=== PATIENT | female | born 1980 | race Caucasian/White ===

== ENCOUNTER 2019-10-31 18:47 | Observation (INO) | payer OTHER, SELFPAY ==
[2019-10-31] VITALS (10 sets, daily range): BP systolic 181–232; BP diastolic 91–129; PULSE 80–95; RESP 16–20; TEMP 36.8–37.4; O2SAT 98–100; BMI 34.2
--- NOTE | 2019-10-31 18:57 | DI.RAD.S_ITS ---
PROCEDURE: XR CHEST 1V INDICATIONS: chest pain TECHNIQUE: One view of the chest was acquired. COMPARISON: None. FINDINGS: Surgical changes and devices: None. Lungs and pleura: Lungs are clear. No pleural effusions or pneumothorax. Mediastinum: Mediastinal contours appear normal. Heart size is normal. Bones and chest wall: No suspicious bony lesions. Overlying soft tissues appear unremarkable. IMPRESSION: No acute cardiopulmonary abnormality. Dictated by: Shaw Díaz M.D. on 10/31/2019 at 19:53 Approved by: Shaw Díaz M.D. on 10/31/2019 at 19:53
[2019-10-31 19:18] LABS: Add Manual Diff / Slide Review NO; Basophils Absolute Auto 0 /uL (0-100); Basophils Percent Auto 0.6 % (0-2); Eosinophils Absolute Auto 100 /uL (0-450); Hematocrit 34.7 % (36-46); Hemoglobin 11.2 g/dL (12.0-16.0); Lymphocytes Absolute Auto 2400 /uL (1100-4500); Lymphocytes Percent Auto 31.4 % (25-40); Mean Corpuscular HGB Conc 32.3 % (30-36); Mean Corpuscular Hemoglobin 26.1 PG (26-34); Mean Corpuscular Volume 80.9 fL (80-100); Monocytes Absolute Auto 600 /uL (0-900); Monocytes Percent Auto 8.2 % (3-14); Neutrophils Absolute Auto 4400 /uL (1500-7000); Neutrophils Percent Auto 57.8 % (50-75); Platelet Count 267 X10^3/uL (150-400); Red Blood Cell Count 4.29 X10^6/uL (4.0-5.2); Red Cell Distribution Width 16.1 % (11.6-14.8); White Blood Cell Count 7.6 X10^3/uL (4.5-11.0)
[2019-10-31 19:29] LABS: Alanine Aminotransferase 14 IU/L (<35); Albumin 4.4 g/dL (3.5-5.0); Albumin Globulin Ratio 1.4 (1.0-2.8); Alkaline Phosphatase 80 U/L (38-126); Aspartate Aminotransferase 26 IU/L (14-36); Bilirubin Total 0.2 mg/dL (0.2-1.3); Blood Urea Nitrogen 12 mg/dL (7-17); Carbon Dioxide 24 mmol/L (22-32); Chloride 107 mmol/L (98-107); Creatine Kinase 41 U/L (30-135); Estimated Glomerular Filt Rate > 60.0 mL/min (>60); Globulin 3.1 g/dL (1.7-4.1); Glucose 114 mg/dL (70-100); HEMOLYSIS 41 (0-50); Lipase 73 U/L (23-300); Potassium 4.4 mmol/L (3.4-5.1); Sodium 139 mmol/L (137-145); Total Protein 7.5 g/dL (6.3-8.2)
[2019-10-31 19:41] LABS: NT-proBNP (BNP-Adult 18+) 78 pg/mL (<125); Troponin I < 0.012 ng/mL (0.01-0.034)
--- NOTE | 2019-10-31 19:50 | ED.CHESTPAIN ---
HPI - Chest Pain General Chief Complaint: Chest Pain Stated Complaint: chest pain Time Seen by Provider: 10/31/19 18:47 Source: patient Mode of arrival: Ambulatory Limitations: no limitations History of Present Illness HPI narrative: 39-year-old female nonsmoker without any significant medical history presents with a chief complaint of retrosternal chest pressure which has been present for most of the week. She states she thinks it gets worse with some exertion and improves slightly when she rests. She denies any radiation of her pain and rates it at a 5/10 and pressure like. She has associated shortness of breath but denies any significant weakness, nausea, vomiting. She has had no fever or chills. She denies recent travel or exposure to persons known to have COVID-19. She denies any abdominal pain nor nausea, vomiting or diarrhea. She denies any dysuria, frequency or urgency. She denies any history of the same. Related Data Home Medications Medication Instructions Recorded Confirmed Lactobacillus acidophilus 1 tab PO QDAY #0 tab 03/04/16 [cranberry] #0 03/04/16 multivitamin [Multiple Vitamins] 1 tab PO QDAY #0 tab 03/04/16 VITAMIN D (Vitamin D2) #0 05/16/16 Allergies Allergy/AdvReac Type Severity Reaction Status Date / Time No Known Drug Allergies Allergy Verified 10/31/19 20:00 Review of Systems Constitutional Constitutional: Denies chills, Denies fatigue, Denies fever(s), Denies frequent falls, Denies lethargy and Denies weakness Eyes Eyes: Denies change in vision, Denies eye discharge, Denies irritation and Denies loss of vision ENT Ears, Nose, Mouth, and Throat: Denies change in voice, Denies dizziness, Denies neck pain, Denies sore throat and Denies throat swelling Cardiovascular Cardiovascular: Reports chest pain, Reports chest pain with activity, Denies irregular heart rhythm, Denies lightheadedness, Denies palpitations, Reports dyspnea, Denies dyspnea on exertion and Denies orthopnea Respiratory Respiratory: Denies cough, Reports dyspnea, Denies dyspnea on exertion and Denies wheezing Gastrointestinal Gastrointestinal: Denies abdominal pain, Denies change in bowel habits, Denies diarrhea, Denies nausea and Denies vomiting Genitourinary Genitourinary: Denies hematuria, Denies flank pain, Denies urinary incontinence and Denies urinary urgency Musculoskeletal Musculoskeletal: Denies back pain, Denies muscle weakness, Denies neck pain, Denies numbness and Denies tingling Integumentary/Breasts Skin/Breast: Denies pruritus, Denies erythema, Denies rash and Denies wounds Neurologic Neurologic: Denies behavioral changes, Denies confusion, Denies dizziness, Denies frequent falls, Denies loss of vision, Denies numbness, Denies tingling and Denies weakness Psychiatric Psychiatric: Denies anxiety, Denies behavioral changes, Denies confusion, Denies depression, Denies homicidal ideation and Denies suicidal ideation Endocrine Endocrine: Denies fatigue, Denies flushing and Denies palpitations Hematologic/Lymphatic Hematologic/Lymphatic: Denies easy bruising Allergic/Immunologic Allergic/Immunologic: Denies urticaria, Denies throat swelling and Denies wheezing Patient History Surgical History History of third molar tooth extraction Status post knee surgery Status post knee surgery Family History Father Age: 73 Prostate cancer Mother Age: 63 Hypertension Social History Smoking Status: Never smoker Smoking Status: Never smoker alcohol intake frequency: holidays/special occasions only Substance Use Type: does not use Exam Narrative Exam Narrative: GENERAL: [39] year old patient appears stated age. Well-nourished, well-developed patient, in mild distress. HEAD: Atraumatic. Normocephalic. EYES: Pupils equal round and reactive. Extraocular motions intact. No scleral icterus. No injection or drainage. ENT: Nose without bleeding, purulent drainage. Throat without erythema, tonsillar hypertrophy or exudate. Airway patent. NECK: Trachea midline. Non tender CARDIOVASCULAR: Regular rate and rhythm without murmurs, gallops, or rubs. RESPIRATORY: Clear to auscultation. Breath sounds equal bilaterally. No wheezes, rales, or rhonchi. GASTROINTESTINAL: Abdomen soft, non-tender, nondistended. EXTREMITIES: No edema or joint tenderness. BACK: Nontender without deformity or crepitance. No flank tenderness. NEURO: AOx3. SKIN: No rash or erythema of visible areas Initial Vital Signs Initial Vital Signs: Vital Signs Temperature 98.3 F 10/31/19 18:58 Pulse Rate 87 10/31/19 18:58 Respiratory Rate 16 10/31/19 18:58 Blood Pressure 232/129 H 10/31/19 18:58 Pulse Oximetry 99 10/31/19 18:58 Course Orders Ordered: ED Orders 10/31/19 18:57 XR chest 1V Stat EKG-12 Lead Stat 10/31/19 19:05 Complete Blood Count AUTO DIFF Stat Comprehensive Metabolic Panel Stat D Dimer Stat Lipase Stat NT-proBNP (BNP-Adult 18+) Stat Troponin & CK Cardiac Panel Stat 10/31/19 21:40 Troponin I Stat Sodium Chloride (Normal Saline 0.9%) 1,000 mls @ 150 mls/hr IV CONT PATIENCE Last Admin: 10/31/19 20:04 Dose: 150 mls/hr Documented by: [email or web address] MIGUELE Nicardipine HCl 25 mg/ Sodium (Chloride) 250 mls @ 50 mls/hr IV TITRATE PATIENCE; Protocol Discontinued Medications Aspirin (Aspirin Chew) 324 mg PO NOW ONE Stop: 10/31/19 18:58 Last Admin: 10/31/19 20:02 Dose: 324 mg Documented by: [email or web address] MIGUELE Labetalol HCl (Trandate) 10 mg IV NOW ONE Stop: 10/31/19 18:58 Last Admin: 10/31/19 20:10 Dose: 10 mg Documented by: CTR.[email or web address] Labetalol HCl (Trandate) 10 mg IV NOW ONE Stop: 10/31/19 19:18 Nitroglycerin (Nitrostat) 0.4 mg SL NOW ONE Stop: 10/31/19 20:56 Last Admin: 10/31/19 21:14 Dose: 0.4 mg Documented by: [email or web address] Reevaluation(s) Reevaluation #1: minimal improvement in BP with Labetalol. No change in symptoms Reevaluation #2: no change in BP or symptoms with NG Consultations Consultation #1: call to hospitalist for admission. Happy to accept Vital Signs Vital signs: Vital Signs - 8 hr 10/31/19 18:58 10/31/19 19:05 10/31/19 19:46 Temperature 98.3 F Pulse Rate 87 80 80 Respiratory Rate 16 19 16 Blood Pressure 232/129 H Blood Pressure [Right Arm] 213/122 H 219/103 H Pulse Oximetry 99 98 100 04/30/20 20:10 10/31/19 20:30 10/31/19 21:14 Temperature Pulse Rate 80 88 86 Respiratory Rate 16 Blood Pressure 228/104 H 201/104 H Blood Pressure [Right Arm] 206/106 H Pulse Oximetry 98 10/31/19 21:24 Temperature Pulse Rate 88 Respiratory Rate 20 Blood Pressure Blood Pressure [Right Arm] 201/101 H Pulse Oximetry 98 MDM - Chest Pain Lab Data Result diagrams: 10/31/19 19:05 10/31/19 19:05 Labs: Lab Results 10/31/19 10/31/19 10/31/19 Range/Units 19:05 19:05 19:05 WBC 7.6 (4.5-11.0) X10^3/uL RBC 4.29 (4.0-5.2) X10^6/uL Hgb 11.2 L (12.0-16.0) g/dL Hct 34.7 L (36-46) % MCV 80.9 (80-100) fL MCH 26.1 (26-34) PG MCHC 32.3 (30-36) % RDW 16.1 H (11.6-14.8) % Plt Count 267 (150-400) X10^3/uL Neut % (Auto) 57.8 (50-75) % Lymph % (Auto) 31.4 (25-40) % [place] % (Auto) 8.2 (3-14) % Eos % (Auto) 2.0 (2-4) % Baso % (Auto) 0.6 (0-2) % Neut # (Auto) 4400 (3113-7057) /uL Lymph # (Auto) 2400 (6452-7179) /uL [place] # (Auto) 600 (0-900) /uL Eos # (Auto) 100 (0-450) /uL Baso # (Auto) 0 (0-100) /uL D-Dimer < 230 (<230) ng/mL Sodium 139 (137-145) mmol/L Potassium 4.4 (3.4-5.1) mmol/L Chloride 107 (98-107) mmol/L Carbon Dioxide 24 (22-32) mmol/L BUN 12 (7-17) mg/dL Creatinine 0.60 (0.52-1.04) mg/dL Estimated GFR > 60.0 (>60) mL/min BUN/Creatinine Ratio 20.0 (6-22) Glucose 114 H (70-100) mg/dL Calcium 9.0 (8.4-10.2) mg/dL Total Bilirubin 0.2 (0.2-1.3) mg/dL AST 26 (14-36) IU/L ALT 14 (<35) IU/L Alkaline Phosphatase 80 (38-126) U/L Total Creatine Kinase 41 (30-135) U/L CK-MB (CK-2) TNP CK-MB (CK-2) Rel Index TNP Troponin I < 0.012 (0.01-0.034) ng/mL NT-Pro-B Natriuret Pep 78 (<125) pg/mL Total Protein 7.5 (6.3-8.2) g/dL Albumin 4.4 (3.5-5.0) g/dL Globulin 3.1 (1.7-4.1) g/dL Albumin/Globulin Ratio 1.4 (1.0-2.8) Lipase 73 (23-300) U/L MDM Narrative Medical decision making narrative: Cardiac ischemia considered, but thought less likely given non-ischemic EKG, normal troponin. PE considered, but thought less likely given normal DDimer. HTN emergency considered to be most likely cause of ongoing discomfort and SOB. Labetalol and NG did little to help, Nicardipine drip ordered. Patient and have had questions answered to their apparent satisfaction and are aware and in complete agreement with the plan to admit Discharge Plan Departure Patient Disposition: Admitted as Observation Clinical Impression: Hypertension Qualifiers: Hypertension type: unspecified Qualified Code(s): I10 - Essential (primary) hypertension Chest pain Qualifiers: Chest pain type: unspecified Qualified Code(s): R07.9 - Chest pain, unspecified Discharge Date/Time: 10/31/19 22:00 Admit Date/Time: 10/31/19 22:03 Admit Provider: Mich Turpin
[2019-10-31] MEDS: ASPIRIN 81 MG CHEW TAB 324 MG PO (20:02)
[2019-10-31] MEDS: SODIUM CHLORIDE 0.9% 1,000 ML 150 ML IV (20:04)
[2019-10-31] MEDS: LABETALOL 20 MG/4 ML SYRINGE 10 MG IV (20:10)
[2019-10-31] MEDS: NITROGLYCERIN 0.4 MG SL TAB SL (21:14)
[2019-10-31 21:51] LABS: D Dimer < 230 ng/mL (<230)
[2019-10-31 22:13] LABS: Troponin I < 0.012 ng/mL (0.01-0.034)
[2019-10-31 22:38] LABS: Bacteria Urine Occasional (0-1); Culture Indicated Urine Specimen Cultured; RBC Urine 30-100/HPF (0-5/HPF); Squamous Epithelial Cell Urine 0-1 /HPF (0-5/HPF); WBC Urine 0-1/HPF (0-5/HPF)
[2019-10-31] MEDS: NICARDIPINE 25 MG in SODIUM CHLORIDE 0.9% 240 ML 50 ML IV (22:50)
[2019-11-01] VITALS (31 sets, daily range): BP systolic 132–189; BP diastolic 70–102; PULSE 68–95; RESP 14–18; TEMP 36.4–37.8; O2SAT 94–100
--- NOTE | 2019-11-01 00:41 | PC.ADMIT ---
Addendum entered by Lexi Dai R.N. 11/01/19 05:40: BP up to 182/90. Nicardipine GTT restarted at 2.5 mg/hour per GLENIS Holley. Addendum entered by Lexi Dai R.N. 11/01/19 05:23: Inverted T waves noted in multiple leads. EKG obtained with non-specific changes, Manjinder GALVIN aware. Next set of cardiac enzymes negative, patient asymptomatic. Last BP 166/96 - PO metoprolol dose given per provider. Addendum entered by Lexi Dai R.N. 11/01/19 02:19: BP trending down below preferred parameters of SBP 160-170. Last 139/74 - Nicardipine GTT turned off. GLENIS Holley made aware. Current plan to hold GTT and PO metoprolol. Continue to check BP frequently every 30-60 min and reassess around 0500. Original Note: [email or web address] [facility] Admission Note: The patient,Lilly Paiz,39 y/o, was given written information regarding hospital policies, unit procedures and contact persons. Patient's smoking status: Never smoker. Vital Signs - 8 hr 10/31/19 18:58 10/31/19 19:05 10/31/19 19:46 Temperature 98.3 F Pulse Rate 87 80 80 Respiratory Rate 16 19 16 Blood Pressure 232/129 H Blood Pressure [Right Arm] 213/122 H 219/103 H Pulse Oximetry 99 98 100 10/31/19 20:10 10/31/19 20:30 10/31/19 21:14 Temperature Pulse Rate 80 88 86 Respiratory Rate 16 Blood Pressure 228/104 H 201/104 H Blood Pressure [Right Arm] 206/106 H Pulse Oximetry 98 10/31/19 21:24 10/31/19 22:18 10/31/19 23:01 Temperature Pulse Rate 88 87 83 Respiratory Rate 20 20 16 Blood Pressure Blood Pressure [Right Arm] 201/101 H 202/98 H 183/97 H Pulse Oximetry 98 98 98 10/31/19 23:53 11/01/19 00:25 Temperature 99.3 F Pulse Rate 95 H 92 H Respiratory Rate 18 16 Blood Pressure 181/91 H 164/89 H Blood Pressure [Right Arm] Pulse Oximetry 98 97 Arrived via stretcher in NAD. Nicardipine GTT per protocol at 5 mg/hour. Denies CP/SOB. SBP 160-180. GLENIS Holley at bedside for admit. Goal SBP 160-170. Up to BR SBA, steady gait. Sp02 98% RA. Oriented to room, call light and plan of care. Verbalized understanding.
--- NOTE | 2019-11-01 01:26 | P.HP_ITS ---
History of Present Illness History of Present Illness Date Patient Seen: 11/01/19 Time Patient Seen: 00:38 Chief complaint: chest pain Narrative: Ms. Lilyl Paiz is a 39-year-old nonsmoker female with no significant medical history who presents to the ER with chest pain. The patient reports developing chest pain approximately 5 days ago. 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 Describes the pain as substernal, pressure-like in character, 5/10 in intensity and nonradiating. She had associated headache as well as shortness of breath. She had not had pain like this before and the pain was worse with activity and relieved with rest. She presented to the ER for evaluation because the persistence of the pain. The patient does have a family history of hypertension as well as her grandmother passing away following multiple strokes. She takes no routine home medications and has a primary care provider home she has not seen in 2-3 years. Patient denies recent illness, fevers or chills a or e xposure to COVID-19. She has had the sub sternal chest pain as described above but denies palpitations, lightheadedness, dizziness or visual changes. She has had no nasal congestion or sore throat. She has no difficulty chewing or swallowing. She has had no cough or wheezing denies abdominal pain, heartburn, nausea or vomiting. She is currently on her menses that started Monday. She has had no changes in bowel habits and denies urinary symptoms. She reports no numbness and tingling of the extremities or gait disturbance. She is independent in all ADLs. No upon arrival to the ER the patient's temperature 98? 0.3, heart rate of 87, blood pressure 232 over 129, respirations of 16 saturating 99% on room air. A chest x-rays taken finding no acute changes and normal heart size. Twelve lead EKG 5 is obtained finding sinus rhythm with a ventricular rate of 74, left and Luda fascicular block, no ectopy no ischemic changes or infarct. On laboratory analysis the patient has white count of 7.6, hemoglobin 11.2, hematocrit of 34.7 and platelets of 267. Her electrolytes are all within normal limits and she has a BUN of 12 and a creatinine of 0.60. Her nonfasting glucose is 114. Her liver functions are all within normal range has 0 2 minutes of 4.4. Total CK is 41 and her troponin is less than 0.012 x 2, BNP is 48 and a D-dimer is less than 230. The patient's administered labetalol in the emergency department which was not efficacious and started on nicardipine infusion. The patient is admitted to the intensive care unit under the medicine service for hypertensive urgency. Patient History Medical History (Updated 11/01/19 @ 01:39 by GLENIS Flaherty) No significant medical problems (Acute) Surgical History (Updated 11/01/19 @ 01:39 by GLENIS Flaherty) History of third molar tooth extraction Status post knee surgery Family & Social History Family History (Updated 11/01/19 @ 01:40 by GLENIS Flaherty) Father Age: 73 Prostate cancer Mother Age: 63 Hypertension Sister Thyroid disease Grandmother Stroke Social History: household members spouse Safety & Behavioral: Feels Safe in Current Yes Environment Been Physically Hurt or No Threatened By a Person Suicidal Ideation Description None Tobacco & Substance use: Smoking Status Never smoker alcohol intake frequency holiday/special occasion Substance Use Type does not use Comment: The patient lives in a single family home with her to whom she has been for 20 years. 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 Smoking: The patient has never used tobacco products. Alcohol: Patient endorses drinking 2 drinks per month. Substance use: Patient denies recreational pharmaceuticals, herbal or cannabis products. Advanced directives: Patient does not have advanced directives in direct conversation states her desire to be FULL CODE. She designates her to be her surrogate decision maker. Meds Home Medications and Allergies Home Medications Medication Instructions Recorded Confirmed Type Lactobacillus acidophilus 1 tab PO QDAY #0 tab 03/04/16 10/31/19 History multivitamin [Multiple Vitamins] 1 tab PO QDAY #0 tab 03/04/16 10/31/19 History cetirizine [Zyrtec] 10 mg PO DAILY 10/31/19 10/31/19 History magnesium chloride 500 mg PO DAILY 10/31/19 10/31/19 History Allergies Allergy/AdvReac Type Severity Reaction Status Date / Time No Known Drug Allergies Allergy Verified 10/31/19 20:00 Review of Systems Review of Systems ROS: Yes All systems reviewed with the patient and are negative except as otherwise documented Exam Vital Signs (past 8 hours): - 10/31/19 18:58 10/31/19 19:05 10/31/19 19:46 Temperature 98.3 F Pulse Rate 87 80 80 Respiratory Rate 16 19 16 Blood Pressure 232/129 H Blood Pressure [Right Arm] 213/122 H 219/103 H Pulse Oximetry 99 98 100 10/31/19 20:10 10/31/19 20:30 10/31/19 21:14 Temperature Pulse Rate 80 88 86 Respiratory Rate 16 Blood Pressure 228/104 H 201/104 H Blood Pressure [Right Arm] 206/106 H Pulse Oximetry 98 10/31/19 21:24 10/31/19 22:18 10/31/19 23:01 Temperature Pulse Rate 88 87 83 Respiratory Rate 20 20 16 Blood Pressure Blood Pressure [Right Arm] 201/101 H 202/98 H 183/97 H Pulse Oximetry 98 98 98 10/31/19 23:53 11/01/19 00:25 11/01/19 00:50 Temperature 99.3 F Pulse Rate 95 H 92 H 95 H Respiratory Rate 18 16 16 Blood Pressure 181/91 H 164/89 H 157/85 H Blood Pressure [Right Arm] Pulse Oximetry 98 97 98 Oxygen Delivery Method Room Air Oxygen Flow Rate 0 Narrative Exam Narrative: GENERAL APPEARANCE: well developed, obese female with a BMI of 34.2, in no acute distress. HEENT: Normocephalic, PERRLA, sclera anicteric, conjunctiva clear, EOMs intact without nystagmus, no sinus tenderness to percussion, no rhinorrhea, mucous membranes are moist and pink without lesions or exudate. NECK/THYROID: neck supple, no JVD, no carotid bruit, no thyromegaly, trachea midline. LYMPH NODES: no cervical or supraclavicular lymphadenopathy. SKIN: [place], warm and dry, no visible lesions, rashes, ulcerations or petechiae. HEART: regular rate and rhythm, S1-S2, 1/6 systolic murmur, no rubs or gallops, brisk capillary refill, trace edema LUNGS: clear to auscultation bilaterally, no coarseness crackles or wheezing, no cough present CHEST: Symmetrical movement, no accessory muscle use, good tidal volume. ABDOMEN: Soft, no distention, no abdominal tenderness, no guarding or peritone al signs, no organomegaly, no flank or suprapubic tenderness, active bowel tones. EXTREMITIES: moves all extremities, strength is 5/5, investigative agent are 5/5 symmetrical, no deformities or joint effusions. NEUROLOGIC: AAO x4, no focal neurologic deficits, cranial nerves II-XII grossly intact, sensation intact to light touch, hearing grossly normal to speech. PSYCH: Good judgment, good insight, linear thought process, cooperative, appropriate with stable behavior Objective Labs Result Diagrams: 10/31/19 19:05 10/31/19 19:05 Labs: Laboratory Results - last 24 hr 10/31/19 10/31/19 10/31/19 19:05 19:05 19:05 WBC 7.6 RBC 4.29 Hgb 11.2 L Hct 34.7 L MCV 80.9 MCH 26.1 MCHC 32.3 RDW 16.1 H Plt Count 267 Neut % (Auto) 57.8 Lymph % (Auto) 31.4 [place] % (Auto) 8.2 Eos % (Auto) 2.0 Baso % (Auto) 0.6 Neut # (Auto) 4400 Lymph # (Auto) 2400 [place] # (Auto) 600 Eos # (Auto) 100 Baso # (Auto) 0 D-Dimer < 230 Sodium 139 Potassium 4.4 Chloride 107 Carbon Dioxide 24 BUN 12 Creatinine 0.60 Estimated GFR > 60.0 BUN/Creatinine Ratio 20.0 Glucose 114 H Calcium 9.0 Total Bilirubin 0.2 AST 26 ALT 14 Alkaline Phosphatase 80 Total Creatine Kinase 41 CK-MB (CK-2) TNP CK-MB (CK-2) Rel Index TNP Troponin I < 0.012 NT-Pro-B Natriuret Pep 78 Total Protein 7.5 Albumin 4.4 Globulin 3.1 Albumin/Globulin Ratio 1.4 Lipase 73 Urine RBC Urine WBC Ur Squamous Epith Cells Urine Bacteria Ur Culture Indicated? 10/31/19 10/31/19 21:40 22:10 WBC RBC Hgb Hct MCV MCH MCHC RDW Plt Count Neut % (Auto) Lymph % (Auto) [place] % (Auto) Eos % (Auto) Baso % (Auto) Neut # (Auto) Lymph # (Auto) [place] # (Auto) Eos # (Auto) Baso # (Auto) D-Dimer Sodium Potassium Chloride Carbon Dioxide BUN Creatinine Estimated GFR BUN/Creatinine Ratio Glucose Calcium Total Bilirubin AST ALT Alkaline Phosphatase Total Creatine Kinase CK-MB (CK-2) CK-MB (CK-2) Rel Index Troponin I < 0.012 NT-Pro-B Natriuret Pep Total Protein Albumin Globulin Albumin/Globulin Ratio Lipase Urine RBC 30-100/hpf H Urine WBC 0-1/hpf Ur Squamous Epith Cells 0-1 /hpf Urine Bacteria Occasional (0-1) Ur Culture Indicated? Specimen cultured Assessment & Plan Assessment & Plan narrative: This is a 39-year-old female patient who presents to the ER with 5 days of chest pressure substernal nonradiating with associated nausea and shortness of breath. 1. Hypertensive urgency, present on admission, active. -On admission the patient is found to have elevated blood pressure 232/129 with no prior history of hypertension. -she has systemic symptoms of pressure-like substernal chest pain that is nonradiating with associated shortness of breath worsening with exertion. -12 lead EKG finds a sinus rhythm with ventricular rate of 74 without ectopy, le ft anterior fascicular block with no ischemia or infarct, chest x-ray finds no acute changes and normal heart size. Troponin is less than 0.012 x 2 BNP is 48, D-dimer is less than 230. -the patient was administered aspirin 324 mg, sublingual nitroglycerin 0.4 mg in the emergency department without affect and subsequent administration of labetalol 10 mg IV with minimal response. The patient is started on nicardipine infusion. -will continue night cardiac pain infusion and titrate to a pressure of 160-170. -ordered metoprolol 25 mg twice daily. -will obtain echocardiogram in the morning. -The patient states improvement with the above-mentioned therapies with improvement in headache and resolution of chest pain. EKG is sinus rhythm without ischemia or infarct, troponin is negative x2, Obtain metanephrines for possible pheochromocytoma. Less likely renal artery stenosis with a BUN of 14 and creatinine 0.60. Isolation: None VTE prophylaxis bilateral SCDs, chemical prophylaxis held related to severe hypertensive episode. IV fluid: Saline lock, nicardipine infusion. Diet: Heart healthy low-sodium. Code status: FULL CODE. The patient is admitted as an inpatient to the intensive care unit on a nicardipine infusion for hypertensive urgency requiring frequent monitoring and medication titration. COVID-19 COVID-19 status: Not tested Scores GCS Pilot coma scale eye opening: Spontaneous [place]ell coma scale verbal response: Orientated Pilot coma scale motor response: Obey commands [place] coma scale total score: 15 Quality VTE Deep Vein Thrombosis/Pulmonary Embolism Present on Admission: No
[2019-11-01 04:35] LABS: Add Manual Diff / Slide Review NO; Basophils Absolute Auto 0 /uL (0-100); Basophils Percent Auto 0.2 % (0-2); Eosinophils Absolute Auto 100 /uL (0-450); Eosinophils Percent Auto 1.1 % (2-4); Hematocrit 30.3 % (36-46); Hemoglobin 10.1 g/dL (12.0-16.0); Lymphocytes Absolute Auto 1900 /uL (1100-4500); Mean Corpuscular HGB Conc 33.4 % (30-36); Mean Corpuscular Hemoglobin 26.8 PG (26-34); Mean Corpuscular Volume 80.2 fL (80-100); Monocytes Absolute Auto 600 /uL (0-900); Monocytes Percent Auto 6.7 % (3-14); Neutrophils Absolute Auto 6000 /uL (1500-7000); Platelet Count 242 X10^3/uL (150-400); Red Blood Cell Count 3.78 X10^6/uL (4.0-5.2); Red Cell Distribution Width 16.2 % (11.6-14.8); White Blood Cell Count 8.6 X10^3/uL (4.5-11.0)
[2019-11-01 04:42] LABS: BUN Creatinine Ratio 14.9 (6-22); Blood Urea Nitrogen 7 mg/dL (7-17); Calcium 8.4 mg/dL (8.4-10.2); Carbon Dioxide 25 mmol/L (22-32); Chloride 108 mmol/L (98-107); Creatine Kinase 30 U/L (30-135); Estimated Glomerular Filt Rate > 60.0 mL/min (>60); Glucose 115 mg/dL (70-100); HEMOLYSIS 25 (0-50); Sodium 138 mmol/L (137-145)
[2019-11-01 04:54] LABS: Troponin I < 0.012 ng/mL (0.01-0.034)
[2019-11-01] MEDS: METOPROLOL IR 25 MG TABLET PO (05:11)
--- NOTE | 2019-11-01 08:00 | DI.NM.S_ITS ---
PROCEDURE: NM GALLITO PERF SPECT R&S PHARM Rest and pharmacological stress myocardial perfusion SPECT with gated imaging and ejection fraction RADIOPHARMACEUTICAL: 26.5 mCi Tc-99m tetrafosmin IV at rest and 21.6 mCi Tc-99m tetrafosmin IV at peak effect of pharmacological stress. Kjp-[id number] was performed. INDICATIONS: hypertensive urgency, EKG changes. TECHNIQUE: Radiopharmaceutical was injected at peak stress test, and also at rest. SPECT images were obtained. SPECT myocardial perfusion images were displayed in short axis, horizontal long axis, and vertical long axis views. Gated images were reviewed using Future Domain software. COMPARISON: None. CARDIAC STRESS: A pharmacologic stress test was performed under the supervision of an attending staff, using an infusion of lexiscan 0.4mg IV X1. Hemodynamic data: There is normal blood pressure and heart rate response to pharmacologic stress. Symptoms: The patient denied anginal chest pain. Aminophylline: none EKG: Resting ECG shows sinus rhythm with non-specific ST changes and diffuse T wave inversions. diagnostic changes of ischemia with lexiscan; no ectopy. FINDINGS: Raw data: There is good myocardial uptake of radiotracer. No significant motion artifacts. Ycby-db-[id number] ratio is 0.27 (normal is less than 0.38 for tetrafosmin tracer). Left ventricle function: Gated images demonstrate normal left ventricular wall thickening. No segmental wall motion abnormalities. No transient ischemic dilation; TID is 0.8 (normal less than 1.3). Left ventricle resting end diastolic volume is 105 mL. Left ventricle stress ejection fraction is 81%; normal range is above 45%. Myocardial perfusion: There is a moderately severe inferior wall defect at rest that improves with stress and nearly resolves on prone imaging, suggesting diaphragmatic attenuation. No ischemia or infarction. IMPRESSION: Low risk, probably normal pharmaceutical nuclear strest test. 1) No perfusion evidence of ischemia or infarction. There is a moderately severe inferior wall defect at rest that improves with stress and nearly resolves on prone imaging, suggesting diaphragmatic attenuation. 2) Normal left ventricular size, wall motion, and systolic function (EF post stress 80%). 3) No ECG evidence of ischemia with lexiscan. 4) No angina during the study. 5) No prior nuclear stress test available for comparison. Dictated by: Nilda Stephen MD on 11/04/2019 at 12:43 Approved by: Nilda Stephen MD on 11/04/2019 at 12:46
[2019-11-01] MEDS: NICARDIPINE 25 MG in SODIUM CHLORIDE 0.9% 240 ML 25 ML IV (08:05)
--- NOTE | 2019-11-01 08:54 | DI.CT.S_ITS ---
PROCEDURE: CT ANGIO ABDOMEN INDICATIONS: Severe hypertension, assess renal artery TECHNIQUE: After the administration of intravenous contrast, 2.5 mm sections acquired from the diaphragm to the iliac crests. 10 mm maximum intensity projection (MIP) coronal and sagittal reformats were then performed. For radiation dose reduction, the following was used: automated exposure control. COMPARISON: None. FINDINGS: Image quality: Excellent. Extravascular tissues: Lung bases are clear. Heart size is normal. Liver is normal in size and enhancement. Gallbladder is normal. Biliary system is non dilated. Pancreas enhances normally. Spleen is normal in size and enhancement. Minor low-density lobular thickening of the body of the lateral limb of the left adrenal gland without a dominant nodule.. Kidneys are normal in size and enhancement, without hydronephrosis. Non-opacified bowel loops demonstrate normal wall thickness and caliber. No free fluid or air. No retroperitoneal or mesenteric adenopathy. Small fat containing umbilical hernia.. No suspicious bony abnormalities. No vertebral body compression fractures. Abdominal aorta: The abdominal aorta is normal caliber without significant atherosclerotic disease. No evidence of dissection or periaortic inflammation. Mesenteric arteries: The celiac axis is widely patent and demonstrates conventional branching anatomy. The superior mesenteric artery is patent at its origin. Minor irregularity and narrowing of the lumen about 3.6 cm beyond the origin. There is slight arterial wall thickening in this region. Overall this narrows the lumen roughly 20%. There is no evidence of distal dissection. Visible SMA branches are patent. The SUSAN is patent. Renal arteries: There are single renal arteries bilaterally which appear widely patent at their origins and are without abnormalities such as dissection or beading. IMPRESSION: 1. Normal single renal arteries bilaterally. 2. Incidental note of mild luminal stenosis surrounded by mild arterial wall thickening in the mid SMA, unlikely to be clinically significant. 3. Normal abdominal aorta without significant atherosclerotic change. 4. Minor nodularity of the left adrenal gland without dominant focal nodule. Dictated by: Jazmyn Marquez M.D. on 11/01/2019 at 9:43 Approved by: Jazmyn Marquez M.D. on 11/01/2019 at 9:56
[2019-11-01] MEDS: CHLORTHALIDONE 25 MG TABLET 12.5 MG PO (09:01)
[2019-11-01] MEDS: carvediloL 3.125 MG TABLET PO (09:01)
[2019-11-01] MEDS: ASPIRIN EC 81 MG TABLET PO (09:01)
--- NOTE | 2019-11-01 09:39 | PC.NURSE ---
Addendum entered by Allison Huang R.N. 11/01/19 15:09: Nicardipine drip stopped at 1440, patient denies chest pain and shortness of breath. Patient taken at 1510 for treadmill. BP 162/93 Original Note: Patient alert, oriented, denies chest pain and pressure, denies shortness of breath. Nicardipine drip stopped for about 20 minutes for CTA, BP upon return was 179/100 HR 83. Restarted Nicardipine drip at 25ml/hr. PO cardizem and chlorthalidone given.
--- NOTE | 2019-11-01 10:24 | DI.ECHO.S_ITS ---
[facility] +---------+ [facility] +---------+ : : [address] : [place] : : : : [id number] : : : : Phone: [phone]+ Echocardiogram Report + + :Name: FRANCISCO GARCIA Study Date: 11/01/2019 Height: 69 in : :Hospital Weight: 231 lb : : Gender: Female BSA: 2.2 m2 : :: 1980 Age: 39 yrs BP: 165/89 mmHg: :Reason For Study: Chest pain, Hypertensive emergency : :Ordering Physician: Petros : :Hospitalist Performed By: Susan Hernandez : :Referring: NASREEN WRIGHT : + + Interpretation Summary Mild concentric left ventricular hypertrophy with ejection fraction 60-65%. No valvular abnormality. Procedure: A two-dimensional transthoracic echocardiogram with color flow and Doppler was performed. The study quality was technically adequate. There is no prior echocardiogram noted for this patient. The patient was in normal sinus rhythm during the exam. Left Ventricle: There is mild concentric left ventricular hypertrophy. The left ventricle is normal in size. There is no ventricular septal defect visualized. The ejection fraction is estimated to be 60-65%. Left ventricular wall motion is normal. Diastolic parameters suggest probable normal left ventricular diastolic function and normal filling pressures. Right Ventricle: The right ventricle is normal in size and function. Atria: Both atria are normal in size. There is no Doppler evidence for an interatrial shunt. Mitral Valve: The mitral valve is normal in structure and function. There is no mitral regurgitation noted. Aortic Valve: The aortic valve is normal in structure and function. No aortic regurgitation is present. Tricuspid Valve: The tricuspid valve is normal in structure and function. No tricuspid regurgitation. Pulmonary artery pressures cannot be estimated because of the lack of a measurable TR jet velocity. Pulmonic Valve: The pulmonic valve is not well seen, but is grossly normal. Great Vessels: The aortic root is normal size. The ascending aorta is normal in size. The IVC is of normal diameter and collapses less than 50% with a sniff. This suggests a right atrial pressure of 8 mm Hg. Pericardium/ Pleura There is no pericardial effusion. MMode/2D Measurements & Calculations LVIDd: 4.4 cm LVOT diam: 2.1 cm LVIDs: 2.3 cm Ao root diam: 3.8 cm FS: 48.1 % Aortic Jxn: 2.8 cm EPSS: 0.57 cm asc Aorta Diam: 3.2 cm IVSd: 1.2 cm Ao Arch Diam (Prox Trans): 3.3 cm LVPWd: 1.2 cm LV parham. diameter/BSA (cm/m^2): 2.0 LV sys. diameter/BSA (cm/m^2): 1.0 LA A2 area: 20.2 cm2 RA long axis: 3.9 cm LA A4 area: 17.9 cm2 RA area: 12.7 cm2 LA length (vol): 5.0 cm RA vol: 35.2 ml LA vol: 60.8 ml RA : 16.0 ml/m2 LA vol index: 27.7 ml/m2 RVD1 (basal): 3.8 cm RVD2 (mid): 3.0 cm TAPSE: 2.3 cm Doppler Measurements & Calculations Ao V2 max: 146.4 cm/sec LVOT Max Carlin: 116.5 cm/sec Ao V2 mean: 99.2 cm/sec LV V1 max P.4 mmHg Ao max P.6 mmHg LV V1 VTI: 22.0 cm Ao mean P.5 mmHg TAMICA(I,D): 2.9 cm2 Ao V2 VTI: 25.1 cm TAMICA(V,D): 2.7 cm2 sev ratio: 0.88 TAMICA indexed to BSA (cm^2/m^2): 1.3 MV E max carlin: 73.3 cm/sec PA V2 max: 110.2 cm/sec MV A max carlin: 67.9 cm/sec PA V2 mean: 70.6 cm/sec MV E/A: 1.1 PA mean P.2 mmHg Med Peak E' Carlin: 7.4 cm/sec PA Accel Time: 0.09 sec E/E' med: 9.9 Lat Peak E' Carlin: 12.2 cm/sec E/E' lat: 6.0 E/e' average: 7.9 MV dec time: 0.28 sec MV P1/2t: 78.6 msec MV P1/2t max carlin: 73.6 cm/sec SV(LVOT): 73.6 ml MVA(P1/2t): 2.8 cm2 Electronically signed by: Ann Lovett on Reading Physician:11/01/2019 02:32 PM
[2019-11-01] MEDS: HEPARIN 5,000 UNIT/ML VIAL 5000 UNIT SUBCUT ×2 (12:14→20:20)
--- NOTE | 2019-11-01 14:14 | CM.DANOTE ---
Discharge Planning/Care Management DCP: assessment: case received, EMR reviewed and met with pt. Introduced self and role. Pt is a 39 year old female who admitted last night to care of hospitalist team. PCP: Dr. Sharyn Allen Payer: Clemente Corey. Admission status: OBS. Pt confirms she is scheduled to have a cardiac stress test this afternoon. P: dependent in part on test results Pt says her will be picking her up once she is stable for a d/c to the home setting. Dr. Westbrook noted in Team Rounds that pt had experienced chest pain for last 5 days and was admitted to the ICU setting for management of hypertensive emergency. DCP team will follow prn. CM Discharge Assessment Start: 11/01/19 14:13 Freq: Status: Active Protocol: Document 11/01/19 14:13 ITV (Rec: 11/01/19 14:14 ITV [id number]) Discharge Planning Assessment Advance Directives? No History Provided By Patient,Medical Record Prior Living Arrangements House Household Members spouse Independent with ADL's Yes Is patient alert and oriented? Yes Review Status In Process
[2019-11-01] MEDS: AMLODIPINE 5 MG TABLET PO ×2 (16:55→18:57)
--- NOTE | 2019-11-01 17:30 | P.PN_ITS ---
Subjective Subjective Date Patient Seen: 11/01/19 Time Patient Seen: 17:30 Interval history: She is seen in her room here today to follow-up for hypertension and related chest pain. Her abdominal CT scan shows no signs of renal artery stenosis. Her echocardiogram is normal with an ejection fraction of 60-65%. Cardiology has read her stress test as showing ischemic inferior changes likely positional and diaphragmatic in origin. A follow-up resting study will need to be done. Her blood pressure remains quite high in the 180s systolic off the nicardipine. Additional test-s- pending include metanephrines and renin level. Exam Vital Signs (past 8 hours): - 11/01/19 10:00 11/01/19 10:12 11/01/19 10:30 Temperature Pulse Rate 74 73 76 Respiratory Rate Blood Pressure 154/85 H 151/82 H Pulse Oximetry 98 94 94 11/01/19 11:00 11/01/19 11:30 11/01/19 12:00 Temperature Pulse Rate 85 80 Respiratory Rate Blood Pressure 175/95 H 165/89 H 136/73 Pulse Oximetry 99 99 11/01/19 13:30 11/01/19 14:00 11/01/19 14:30 Temperature Pulse Rate Respiratory Rate Blood Pressure 148/76 H 132/81 155/89 H Pulse Oximetry 11/01/19 15:00 11/01/19 16:54 Temperature 98.3 F Pulse Rate 81 Respiratory Rate 18 Blood Pressure 162/93 H 181/84 H Pulse Oximetry 96 Oxygen Delivery Method Room Air Oxygen Flow Rate 0 Narrative Exam Narrative: She is alert and oriented without apparent distress Heart is regular rate and rhythm without murmur Extremities have no ankle edema Lungs are clear to auscultation bilaterally Objective Labs Result Diagrams: 11/01/19 04:20 11/01/19 04:20 Labs: Laboratory Results - last 24 hr 10/31/19 10/31/19 10/31/19 19:05 19:05 19:05 WBC 7.6 RBC 4.29 Hgb 11.2 L Hct 34.7 L MCV 80.9 MCH 26.1 MCHC 32.3 RDW 16.1 H Plt Count 267 Neut % (Auto) 57.8 Lymph % (Auto) 31.4 Glades % (Auto) 8.2 Eos % (Auto) 2.0 Baso % (Auto) 0.6 Neut # (Auto) 4400 Lymph # (Auto) 2400 Glades # (Auto) 600 Eos # (Auto) 100 Baso # (Auto) 0 D-Dimer < 230 Sodium 139 Potassium 4.4 Chloride 107 Carbon Dioxide 24 BUN 12 Creatinine 0.60 Estimated GFR > 60.0 BUN/Creatinine Ratio 20.0 Glucose 114 H Calcium 9.0 Total Bilirubin 0.2 AST 26 ALT 14 Alkaline Phosphatase 80 Total Creatine Kinase 41 CK-MB (CK-2) TNP CK-MB (CK-2) Rel Index TNP Troponin I < 0.012 NT-Pro-B Natriuret Pep 78 Total Protein 7.5 Albumin 4.4 Globulin 3.1 Albumin/Globulin Ratio 1.4 Lipase 73 Urine RBC Urine WBC Ur Squamous Epith Cells Urine Bacteria Ur Culture Indicated? Nasal Screen MRSA (PCR) 10/31/19 10/31/19 10/31/19 21:40 22:10 23:50 WBC RBC Hgb Hct MCV MCH MCHC RDW Plt Count Neut % (Auto) Lymph % (Auto) Glades % (Auto) Eos % (Auto) Baso % (Auto) Neut # (Auto) Lymph # (Auto) Glades # (Auto) Eos # (Auto) Baso # (Auto) D-Dimer Sodium Potassium Chloride Carbon Dioxide BUN Creatinine Estimated GFR BUN/Creatinine Ratio Glucose Calcium Total Bilirubin AST ALT Alkaline Phosphatase Total Creatine Kinase CK-MB (CK-2) CK-MB (CK-2) Rel Index Troponin I < 0.012 NT-Pro-B Natriuret Pep Total Protein Albumin Globulin Albumin/Globulin Ratio Lipase Urine RBC 30-100/hpf H Urine WBC 0-1/hpf Ur Squamous Epith Cells 0-1 /hpf Urine Bacteria Occasional (0-1) Ur Culture Indicated? Specimen cultured Nasal Screen MRSA (PCR) Negative for mrsa 11/01/19 11/01/19 04:20 04:20 WBC 8.6 RBC 3.78 L Hgb 10.1 L Hct 30.3 L MCV 80.2 MCH 26.8 MCHC 33.4 RDW 16.2 H Plt Count 242 Neut % (Auto) 70.0 Lymph % (Auto) 22.0 L Glades % (Auto) 6.7 Eos % (Auto) 1.1 L Baso % (Auto) 0.2 Neut # (Auto) 6000 Lymph # (Auto) 1900 Glades # (Auto) 600 Eos # (Auto) 100 Baso # (Auto) 0 D-Dimer Sodium 138 Potassium 4.0 Chloride 108 H Carbon Dioxide 25 BUN 7 Creatinine 0.47 L Estimated GFR > 60.0 BUN/Creatinine Ratio 14.9 Glucose 115 H Calcium 8.4 Total Bilirubin AST ALT Alkaline Phosphatase Total Creatine Kinase 30 CK-MB (CK-2) TNP CK-MB (CK-2) Rel Index TNP Troponin I < 0.012 NT-Pro-B Natriuret Pep Total Protein Albumin Globulin Albumin/Globulin Ratio Lipase Urine RBC Urine WBC Ur Squamous Epith Cells Urine Bacteria Ur Culture Indicated? Nasal Screen MRSA (PCR) Assessment & Plan Assessment & Plan narrative: This is a 39-year-old female patient who presents to the ER with 5 days of chest pressure substernal nonradiating with associated nausea and shortness of breath. 1. Hypertensive urgency, present on admission, active. -On admission the patient is found to have elevated blood pressure 232/129 with no prior history of hypertension. -she has systemic symptoms of pressure-like substernal chest pain that is non radiating with associated shortness of breath worsening with exertion. -12 lead EKG finds a sinus rhythm with ventricular rate of 74 without ectopy, left anterior fascicular block with no ischemia or infarct, chest x-ray finds no acute changes and normal heart size. Troponin is less than 0.012 x 2 BNP is 48, D-dimer is less than 230. -the patient was administered aspirin 324 mg, sublingual nitroglycerin 0.4 mg in the emergency department without affect and subsequent administration of labetalol 10 mg IV with minimal response. The patient was started on nicardipine infusion which was stopped today for the ETT. -Will increase Carvedilol to 6.25 mg BID and increase Amlodipine to 10 mg today 10/31 -Echocardiogram is normal with 60-65% EF; CT abdomen without signs or renal artery stenosis -The patient states improvement with the above-mentioned therapies with improvement in headache and resolution of chest pain. EKG is sinus rhythm without ischemia or infarct, troponin is negative x2, still pending metanephrines for possible pheochromocytoma. Less likely renal artery stenosis with a BUN of 14 and creatinine 0.60. -Anticipate discharge home 11/01 if BP has responded well to increased PO med changes 10/31. -Followup resting Nuc Med study planned for outpatient on Friday 11/03 2. Normocytic Anemia -Hgb 11.2 on admission and now down to 10.1 on 10/31 without signs of bleeding, etc. Hemodilution may be a component. -Follow up CBC 11/01 and consider outpatient GI workup if continues. Check Iron and B12. VTE prophylaxis bilateral SCDs, chemical prophylaxis held related to severe hypertensive episode. Diet: Heart healthy low-sodium. Code status: FULL CODE. Quality VTE Deep Vein Thrombosis/Pulmonary Embolism Present on Admission: No
[2019-11-01] MEDS: carvediloL 6.25 MG TABLET PO (20:20)
[2019-11-02 00:20] VITALS: BP 143/87; PULSE 70; RESP 18; TEMP 36.6; O2SAT 99
[2019-11-02 05:06] LABS: Blood Urea Nitrogen 9 mg/dL (7-17); Calcium 9.2 mg/dL (8.4-10.2); Carbon Dioxide 26 mmol/L (22-32); Chloride 103 mmol/L (98-107); Estimated Glomerular Filt Rate > 60.0 mL/min (>60); Glucose 120 mg/dL (70-100); HEMOLYSIS < 15 (0-50); Potassium 3.7 mmol/L (3.4-5.1); Sodium 137 mmol/L (137-145)
[2019-11-02 05:09] LABS: Add Manual Diff / Slide Review NO; Basophils Absolute Auto 0 /uL (0-100); Basophils Percent Auto 0.3 % (0-2); Eosinophils Absolute Auto 100 /uL (0-450); Eosinophils Percent Auto 1.9 % (2-4); Hematocrit 31.7 % (36-46); Hemoglobin 10.4 g/dL (12.0-16.0); Lymphocytes Absolute Auto 1900 /uL (1100-4500); Lymphocytes Percent Auto 26.8 % (25-40); Mean Corpuscular Hemoglobin 26.5 PG (26-34); Mean Corpuscular Volume 80.4 fL (80-100); Monocytes Absolute Auto 700 /uL (0-900); Monocytes Percent Auto 9.9 % (3-14); Neutrophils Absolute Auto 4400 /uL (1500-7000); Neutrophils Percent Auto 61.1 % (50-75); Platelet Count 247 X10^3/uL (150-400); Red Blood Cell Count 3.94 X10^6/uL (4.0-5.2); Red Cell Distribution Width 16.1 % (11.6-14.8); White Blood Cell Count 7.2 X10^3/uL (4.5-11.0)
[2019-11-02 05:11] LABS: Iron 38 ug/dL (37-170)
[2019-11-02 05:37] VITALS: BP 138/77; PULSE 65; RESP 16; TEMP 36.8; O2SAT 97
[2019-11-02 06:01] LABS: Vitamin B12 769 pg/mL (239-931)
[2019-11-02 08:03] VITALS: BP 136/88; PULSE 74; RESP 16; TEMP 36.6; O2SAT 95
[2019-11-02] MEDS: ASPIRIN EC 81 MG TABLET PO (09:52)
[2019-11-02] MEDS: HEPARIN 5,000 UNIT/ML VIAL 5000 UNIT SUBCUT (09:52)
[2019-11-02] MEDS: carvediloL 6.25 MG TABLET PO (09:52)
[2019-11-02] MEDS: AMLODIPINE 5 MG TABLET 10 MG PO (09:52)
[2019-11-02] MEDS: CHLORTHALIDONE 25 MG TABLET 12.5 MG PO (09:54)
[2019-11-02 11:50] VITALS: BP 137/85; PULSE 71; RESP 16; TEMP 36.7; O2SAT 97
--- NOTE | 2019-11-02 12:10 | PM.DS.1 ---
History of Present Illness History of Present Illness Date Patient Seen: 11/01/19 Chief complaint: chest pain Narrative: Written by Mich GALVIN: Ms. Lilly Paiz is a 39-year-old nonsmoker female with no significant medical history who presents to the ER with chest pain. The patient reports developing chest pain approximately 5 days ago. 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 Describes the pain as substernal, pressure-like in character, 5/10 in intensity and nonradiating. She had associated headache as well as shortness of breath. She had not had pain like this before and the pain was worse with activity and relieved with rest. She presented to the ER for evaluation because the persistence of the pain. The patient does have a family history of hypertension as well as her grandmother passing away following multiple strokes. She takes no routine home medications and has a primary care provider home she has not seen in 2-3 years. Patient denies recent illness, fevers or chills a or exposure to COVID-19. She has had the sub sternal chest pain as described above but denies palpitations, lightheadedness, dizziness or visual changes. She has had no nasal congestion or sore throat. She has no difficulty chewing or swallowing. She has had no cough or wheezing denies abdominal pain, heartburn, nausea or vomiting. She is currently on her menses that started Monday. She has had no changes in bowel habits and denies urinary symptoms. She reports no numbness and tingling of the extremities or gait disturbance. She is independent in all ADLs. No upon arrival to the ER the patient's temperature 98? 0.3, heart rate of 87, blood pressure 232 over 129, respirations of 16 saturating 99% on room air. A chest x-rays taken finding no acute changes and normal heart size. Twelve lead EKG 5 is obtained finding sinus rhythm with a ventricular rate of 74, left and Luda fascicular block, no ectopy no ischemic changes or infarct. On laboratory analysis the patient has white count of 7.6, hemoglobin 11.2, hematocrit of 34.7 and platelets of 267. Her electrolytes are all within normal limits and she has a BUN of 12 and a creatinine of 0.60. Her nonfasting glucose is 114. Her liver functions are all within normal range has 0 2 minutes of 4.4. Total CK is 41 and her troponin is less than 0.012 x 2, BNP is 48 and a D-dimer is less than 230. The patient's administered labetalol in the emergency department which was not efficacious and started on nicardipine infusion. The patient is admitted to the intensive care unit under the medicine service for hypertensive urgency. Discharge Providers Provider Date of admission: 10/31/19 22:03 Discharge Date: 11/02/19 Primary care physician: Honey Allen MD Discharge provider: Johanny Westbrook DO Summary Hospital Course Discharge Diagnosis: 1. Hypertensive urgency and secondary chest pressure, present on admission. Resolved. 2. Normocytic anemia, likely chronic, present on admission. Stable. Hospital Course: Lilly Paiz is a 39-year-old nonsmoker female with no significant past medical history who presented to the ED with 5 days of non-radiating substernal chest pressure with associated nausea and shortness of breath. 1. Hypertensive urgency and secondary chest pressure, present on admission. Resolved. -Patient presented with non-radiating pressure-like substernal chest pain with associated nausea and shortness of breath worse with exertion. -On admission the patient had profoundly elevated blood pressure of 232/129 with no prior history of hypertension. -EKG demonstrated normal sinus rhythm with left anterior fascicular block and no acute ischemic changes such as ST elevation or depression. -Chest x-ray did not demonstrate any acute cardiopulmonary process. -Serial troponin x 3 negative < 0.012. -ProBNP normal at 48. D-dimer normal at < 230. -Echocardiogram was unremarkable EF 60-65%. -CTA abdomen and pelvis negative for renal artery stenosis. -Renin/aldosterone and metanephrines pending and will defer to PCP for follow-up. -Risk stratified with hemoglobin A1C which was normal at 5.5% and fasting lipid panel which demonstrated fair lipid control: Total cholesterol 175, triglycerides slightly elevated at 168 (goal < 150), LDL slightly elevated at 113 (goal < 100) and HDL slightly low at 28. Recommended 3 month trial of lifestyle modification including diet and exercise which was discussed in detail. If lipids do not improve consider statin therapy and will defer to PCP. -Received aspirin 324 mg x 1 and sublingual nitroglycerin 0.4 mg x 1 in ED without affect and subsequent administration of labetalol 10 mg IV x1 with minimal response. The patient was started on nicardipine gtt with good blood pressure control and resolution of chest pressure. Nicardipine was slowly titrated off after PO anti-hypertensives started and were titrated to effect. Continued and discharged on amlodipine 10 mg daily in the evening, carvedilol to 6.25 mg twice daily and chlorthalidone 12.5 mg daily. BP much improved with last 137/85. -NM stress test read by cardiology as ischemic inferior changes likely positional and diaphragmatic in origin and recommended resting study to be done on 11/03. 2. Normocytic anemia, likely chronic, present on admission. Stable. -Patinet endorses heavy menses. -B12 and iron levels normal. -Initial hemoglobin 11.2. Hemoglobin decreased to 10.1 likely due to hemodilution and trended back up now 10.4. No overt signs of bleeding. -Continued to monitor CBC daily. Exam Vital Signs (past 8 hours): - 11/02/19 05:37 11/02/19 08:03 Temperature 98.2 F 97.9 F Pulse Rate 65 74 Respiratory Rate 16 16 Blood Pressure 138/77 136/88 Pulse Oximetry 97 95 Oxygen Delivery Method Room Air Oxygen Flow Rate 0 Narrative Exam Narrative: General: Middle aged female sitting in bed and in no acute distress, well-developed, well-nourished, appropriately interactive. HEENT: Normocephalic, atraumatic. External ears without defect. Pupils equal, round, and reactive to light and accommodation. Anicteric sclerae, moist conjunctivae, and no lid lag. Oropharynx free of erythema and cobble stoning with moist mucosa. Neck: Supple with full range of motion. No jugular venous distension. No bruits. No lymphadenopathy or thyromegaly. Cardiovascular: Regular rate and rhythm without murmurs, rubs, or gallops appreciated. Pulmonary: Clear to auscultation bilaterally without crackles, wheezes, or rhonchi. Normal respiratory effort with no use of accessory muscles. Abdomen Soft, bowel sounds present, nontender, nondistended. No hepatosplenomegaly or masses appreciated. Extremities: No clubbing, cyanosis, or edema. Skin: Normal temperature, turgor, and texture; no rash, ulcers, or subcutaneous nodules appreciated. Neurological: Cranial nerves grossly intact. Psychiatric: Normal mood and affect. Alert and oriented to person, place, and time. Objective Labs Result Diagrams: 11/02/19 04:38 11/02/19 04:38 Labs: Laboratory Results - last 24 hr 11/02/19 11/02/19 11/02/19 04:38 04:38 04:38 WBC 7.2 RBC 3.94 L Hgb 10.4 L Hct 31.7 L MCV 80.4 MCH 26.5 MCHC 33.0 RDW 16.1 H Plt Count 247 Neut % (Auto) 61.1 Lymph % (Auto) 26.8 [place] % (Auto) 9.9 Eos % (Auto) 1.9 L Baso % (Auto) 0.3 Neut # (Auto) 4400 Lymph # (Auto) 1900 [place] # (Auto) 700 Eos # (Auto) 100 Baso # (Auto) 0 Sodium 137 Potassium 3.7 Chloride 103 Carbon Dioxide 26 BUN 9 Creatinine 0.60 Estimated GFR > 60.0 BUN/Creatinine Ratio 15.0 Glucose 120 H Calcium 9.2 Iron 38 Vitamin B12 11/02/19 04:38 WBC RBC Hgb Hct MCV MCH MCHC RDW Plt Count Neut % (Auto) Lymph % (Auto) [place] % (Auto) Eos % (Auto) Baso % (Auto) Neut # (Auto) Lymph # (Auto) [place] # (Auto) Eos # (Auto) Baso # (Auto) Sodium Potassium Chloride Carbon Dioxide BUN Creatinine Estimated GFR BUN/Creatinine Ratio Glucose Calcium Iron Vitamin B12 769 Discharge Plan Discharge Plan Patient Disposition: Home Discharge comment: You are being discharged home. You had hypertensive urgency (not emergency no damage to organs) and your chest pressure was likely due to severe hypertension. You have been prescribed chlorthalidone 12.5 mg daily in the morning, carvedilol 6.25 mg twice daily (in the morning and at bedtime), and amlodipine 10 mg daily at bedtime (to start tomorrow night). Please implement lifestyle modification including diet and exercise as discussed. The [place] [employer] recommends 150 minutes of moderate to high intensity cardiovascular exercise per week (sustained heart rate 140-150's). If your sedentary please start with small obtainable goals and work your way up to 150 minutes a week. Please follow-up with your resting portion of your stress test on Monday. Please follow-up with your PCP, Dr. Allen, in the next 1-2 weeks regarding your hospitalization and to follow-up on pending tests. Please keep a log of your blood pressures for the next 1 week and bring this to your follow-up appointment with your PCP (2 measurements in the morning and 2 measurements in the evening with each reading at least 10 minutes apart). Please use correct blood pressure technique including: Sitting in chair with back supported, feet planted on the ground, resting for at least 5 minutes prior to measurement, blood pressure cuff at the level of the heart and arm resting on heart flat surface. Discharge orders & Medications Prescriptions: New carvedilol [Coreg] 6.25 mg Tablet 6.25 mg PO BID Qty: 60 RF: 0 chlorthalidone 25 mg Tablet 12.5 mg PO DAILY Qty: 30 RF: 0 aspirin 81 mg Tablet,Delayed Release (Dr/Ec) 81 mg PO DAILY Qty: 30 RF: 0 amlodipine 10 mg tablet 10 mg PO QPM Qty: 30 RF: 0 Continued multivitamin [Multiple Vitamins] 1 EACH tablet 1 tab PO QDAY Qty: 0 RF: 0 Lactobacillus acidophilus 1 EACH capsule 1 tab PO QDAY Qty: 0 RF: 0 Zyrtec 10 mg Capsule 10 mg PO DAILY RF: 0 magnesium chloride tablet 500 mg PO DAILY RF: 0 Follow up/Referrals: Honey Allen MD [Primary Care Provider] - 1 Week Diet/Activity/Treatments Diet: Low-fat, Low-sodium and Low-cholesterol Activity: Activity as tolerated Visit Report/Discharge Packet Instructions: The Mediterranean Diet and Good Health, The DASH Diet, Essential Hypertension, DI for Malignant Hypertension, Chlorthalidone, Aspirin, Amlodipine, Carvedilol Discharge Data Primary Care Provider: Honey Allen Attending Provider: Mich Turpin Admit Date/Time: 10/31/19 22:03 Discharges patient from system. Discharge Date/Time: 11/02/19 13:00 Quality VTE Deep Vein Thrombosis/Pulmonary Embolism Present on Admission: No
[2019-11-02 12:15] LABS: Cholesterol 175 mg/dL (140-199); HDL Cholesterol 28 mg/dL (40-60); LDL Cholesterol Calculated 113 mg/dL (<100); Triglycerides 168 mg/dL (35-150)
[2019-11-02 12:21] LABS: Hemoglobin A1C% w Est Avg Glu 5.5 % (4.0-6.0)
--- NOTE | 2019-11-02 14:09 | PC.NURSE ---
Pt dc'd to home per hospitalist order at 1300. DC packet and educational material provided. Provided verbal education regarding dx, medications (dosage/time/next dose due/side effects/monitoring parameters), need to call and schedule f/u appt with Dr. Allen, need to call on Monday to confirm second part of stress test. Provided dietary education. Pt verbalizes understanding and states no questions at this time. Removed PIV with cath tip intact. Pt dressed self and transferred independently to w/c in no acute distress for d/c home. Pt was escorted to POV by RN.
[2019-11-05 12:38] LABS: Plama Renin, LC/MS/MS 0.577 ng/mL/hr (0.167-5.380)
[2019-11-05 16:31] LABS: Metanephrine,Plasma <10 pg/mL (0-62)
== END 2019-11-02 13:00 | disposition home or self-care (01) ==
LOC: ED 19:01 → ICU 21:57 → ED 22:02 → ICU 22:26
PROVIDERS: Family Medicine; Internal Medicine; Admitting Provider Nurse Practitioner Adult Health; Emergency Provider Emergency Medicine; Family Provider Family Medicine; PCP Family Medicine; Referring Provider Emergency Medicine; Visit Provider Nurse Practitioner Adult Health
DX: I16.0 Hypertensive urgency (principal); R07.9 Chest pain, unspecified; R11.0 Nausea; R06.02 Shortness of breath; D64.9 Anemia, unspecified
CPT/HCPCS: 36415; 71045; 74175; 78452; 80048; 80053; 80061; 81003; 81015; 81025; 82088; 82550; 82607; 83036; 83540; 83690; 83835; 83880; 84244; 84484; 85025; 85379; 87086; 87797; 93005; 93017; 93306; 94760; 96365; 96366; 96372; 96375; 99284; G0378; A9502; J1644; J2785; Q9967

== ENCOUNTER 2019-11-04 21:32 | Emergency (ER) | payer OTHER, SELFPAY ==
[2019-10-31 22:10] VITALS: BMI 34.2
--- NOTE | 2019-11-04 21:33 | ED_ITS ---
HPI - Chest Pain General Chief Complaint: Chest Pain Stated Complaint: Chest Pain Time Seen by Provider: 11/04/19 21:33 Source: patient Mode of arrival: Ambulatory Limitations: no limitations History of Present Illness HPI narrative: 39-year-old female nonsmoker with history of hypertension presents with chief complaint of anterior chest pressure for the majority of the day. She denies any provocation or palliation nor radiation. She is not dizzy nor weak or lightheaded. She denies any shortness of breath, nausea nor vomiting. She was recently admitted for a hypertensive emergency, placed on a nicardipine drip and discharged on Coreg. Patient had the second portion of a stress test today and it went well. She denies recent travel, history of clot, or known cancer. She had a negative DDimer during last visit. CT of abdomen noted no renal artery stenosis or other problems to pursue. MD complaint: chest pain Onset (ago): hour(s) Duration: constant Onset: during rest Pain location: substernal Severity: mild Severity scale (1-10): 3 Quality: aching Pain radiation: none Relieving factors: nothing Exacerbating factors: nothing Context: recent immobilization Associated symptoms: nausea Treatments prior to arrival chest pain: none Related Data On Oral Contraceptives: No Home Medications Medication Instructions Recorded Confirmed Lactobacillus acidophilus 1 tab PO QDAY #0 tab 03/04/16 10/31/19 multivitamin [Multiple Vitamins] 1 tab PO QDAY #0 tab 03/04/16 10/31/19 Zyrtec 10 mg PO DAILY 10/31/19 10/31/19 magnesium chloride 500 mg PO DAILY 10/31/19 10/31/19 Previous Rx's Medication Instructions Recorded amlodipine 10 mg PO QPM #30 tab 11/02/19 aspirin 81 mg PO DAILY #30 tab 11/02/19 carvedilol [Coreg] 6.25 mg PO BID #60 tab 11/02/19 chlorthalidone 12.5 mg PO DAILY #30 tab 11/02/19 Allergies Allergy/AdvReac Type Severity Reaction Status Date / Time No Known Drug Allergies Allergy Verified 10/31/19 20:00 Review of Systems Constitutional Constitutional: Denies chills, Denies fatigue, Denies fever(s), Denies frequent falls, Denies lethargy and Denies weakness Eyes Eyes: Denies change in vision, Denies eye discharge, Denies irritation and Denies loss of vision ENT Ears, Nose, Mouth, and Throat: Denies change in voice, Denies dizziness, Denies neck pain, Denies sore throat and Denies throat swelling Cardiovascular Cardiovascular: Reports chest pain, Denies irregular heart rhythm, Denies lightheadedness, Denies palpitations, Denies dyspnea, Denies dyspnea on exertion and Denies orthopnea Respiratory Respiratory: Denies cough, Denies dyspnea, Denies dyspnea on exertion and Denies wheezing Gastrointestinal Gastrointestinal: Denies abdominal pain, Denies change in bowel habits, Denies diarrhea, Denies nausea and Denies vomiting Genitourinary Genitourinary: Denies hematuria, Denies flank pain, Denies urinary incontinence and Denies urinary urgency Musculoskeletal Musculoskeletal: Denies back pain, Denies muscle weakness, Denies neck pain, Denies numbness and Denies tingling Integumentary/Breasts Skin/Breast: Denies pruritus, Denies erythema, Denies rash and Denies wounds Neurologic Neurologic: Denies behavioral changes, Denies confusion, Denies dizziness, Denies frequent falls, Denies loss of vision, Denies numbness, Denies tingling and Denies weakness Psychiatric Psychiatric: Denies anxiety, Denies behavioral changes, Denies confusion, Denies depression, Denies homicidal ideation and Denies suicidal ideation Endocrine Endocrine: Denies fatigue, Denies flushing and Denies palpitations Hematologic/Lymphatic Hematologic/Lymphatic: Denies easy bruising Allergic/Immunologic Allergic/Immunologic: Denies urticaria, Denies throat swelling and Denies wheezing Patient History Medical History No significant medical problems (Acute) Surgical History History of third molar tooth extraction Status post knee surgery Family History Father Age: 73 Prostate cancer Mother Age: 63 Hypertension Sister Thyroid disease Grandmother Stroke Social History household members: spouse Smoking Status: Never smoker Smoking Status: Never smoker alcohol intake frequency: holidays/special occasions only Substance Use Type: does not use Exam Narrative Exam Narrative: GENERAL: [39] year old patient appears stated age. Well- nourished, well-developed patient, in mild distress. HEAD: Atraumatic. Normocephalic. EYES: Pupils equal round and reactive. Extraocular motions intact. No scleral icterus. No injection or drainage. ENT: Nose without bleeding, purulent drainage. Throat without erythema, tonsillar hypertrophy or exudate. Airway patent. NECK: Trachea midline. Non tender CARDIOVASCULAR: Regular rate and rhythm without murmurs, gallops, or rubs. RESPIRATORY: Clear to auscultation. Breath sounds equal bilaterally. No wheezes, rales, or rhonchi. GASTROINTESTINAL: Abdomen soft, non-tender, nondistended. EXTREMITIES: No edema or joint tenderness. BACK: Nontender without deformity or crepitance. No flank tenderness. NEURO: AOx3. SKIN: No rash or erythema of visible areas Initial Vital Signs Initial Vital Signs: Vital Signs Pulse Rate 72 11/04/19 21:47 Respiratory Rate 20 11/04/19 21:47 Blood Pressure 192/105 H 11/04/19 21:47 Pulse Oximetry 98 11/04/19 21:47 Scores HEART Score Heart Score history: Slightly Suspicious Heart Score EKG: Normal Heart Score Age: < 45 years old Heart Score risk factors: 1-2 risk factors Heart Score troponin: < or = to normal limit Heart Score Total: 1 PERC Score Age greater than or equal to 50 years: No Heart rate greater than or equal to 100 bpm: No Room Air O2 Sat less than 95%: No Unilateral leg swelling: No Recent trauma or surgery: No Hemoptysis: No Prior PE or DVT: No Hormone Use: No Total PERC Score: 0 Wells' Criteria for PE Clinical signs and symptoms of DVT: No PE is #1 Dx or equally likely: No Heart rate > 100: No Immobilization at least 3 days or surg in previous 4 weeks: No History of PE or DVT: No Hemoptysis: No Malignancy w/Treatment within 6 months or palliative: No Wells' PE Score total: 0 Course Orders Ordered: Discontinued Medications Sodium Chloride (Normal Saline 0.9%) 1,000 mls @ 150 mls/hr IV CONT PATIENCE Last Infusion: 11/05/19 00:37 Dose: 0 mls/hr Documented by: Admin: 11/04/19 21:49 Dose: 150 mls/hr Documented by: VALENTE Reevaluation(s) Reevaluation #1: Initial BP quickly drops to the 140s, no change in symptoms Vital Signs Vital signs: Vital Signs - 8 hr 11/04/19 21:47 11/04/19 22:11 Pulse Rate 72 75 Respiratory Rate 20 18 Blood Pressure 192/105 H Blood Pressure [Left Arm] 143/91 H Pulse Oximetry 98 MDM - Chest Pain Medical Records Data Attestation: I reviewed the patient's medical records. Lab Data Result diagrams: 11/04/19 21:45 11/04/19 21:45 Labs: Lab Results 11/04/19 11/04/19 11/04/19 Range/Units 21:45 21:45 21:45 WBC 7.8 (4.5-11.0) X10^3/uL RBC 4.38 (4.0-5.2) X10^6/uL Hgb 11.7 L (12.0-16.0) g/dL Hct 35.0 L (36-46) % MCV 79.9 L (80-100) fL MCH 26.7 (26-34) PG MCHC 33.3 (30-36) % RDW 15.9 H (11.6-14.8) % Plt Count 359 (150-400) X10^3/uL Neut % (Auto) 53.1 (50-75) % Lymph % (Auto) 35.3 (25-40) % [place] % (Auto) 8.8 (3-14) % Eos % (Auto) 2.4 (2-4) % Baso % (Auto) 0.4 (0-2) % Neut # (Auto) 4100 (0440-7157) /uL Lymph # (Auto) 2700 (8592-9312) /uL [place] # (Auto) 700 (0-900) /uL Eos # (Auto) 200 (0-450) /uL Baso # (Auto) 0 (0-100) /uL D-Dimer < 200 (<230) ng/mL Sodium 136 L (137-145) mmol/L Potassium 3.6 (3.4-5.1) mmol/L Chloride 99 (98-107) mmol/L Carbon Dioxide 28 (22-32) mmol/L BUN 12 (7-17) mg/dL Creatinine 0.71 (0.52-1.04) mg/dL Estimated GFR > 60.0 (>60) mL/min BUN/Creatinine Ratio 16.9 (6-22) Glucose 162 H (70-100) mg/dL Calcium 9.2 (8.4-10.2) mg/dL Total Bilirubin 0.1 L (0.2-1.3) mg/dL AST 21 (14-36) IU/L ALT 15 (<35) IU/L Alkaline Phosphatase 85 (38-126) U/L Total Creatine Kinase 30 (30-135) U/L CK-MB (CK-2) TNP CK-MB (CK-2) Rel Index TNP Troponin I < 0.012 (0.01-0.034) ng/mL NT-Pro-B Natriuret Pep 24 (<125) pg/mL Total Protein 8.1 (6.3-8.2) g/dL Albumin 4.7 (3.5-5.0) g/dL Globulin 3.4 (1.7-4.1) g/dL Albumin/Globulin Ratio 1.4 (1.0-2.8) Lipase 99 (23-300) U/L 11/04/19 Range/Units 23:37 WBC (4.5-11.0) X10^3/uL RBC (4.0-5.2) X10^6/uL Hgb (12.0-16.0) g/dL Hct (36-46) % MCV (80-100) fL MCH (26-34) PG MCHC (30-36) % RDW (11.6-14.8) % Plt Count (150-400) X10^3/uL Neut % (Auto) (50-75) % Lymph % (Auto) (25-40) % [place] % (Auto) (3-14) % Eos % (Auto) (2-4) % Baso % (Auto) (0-2) % Neut # (Auto) (7548-1636) /uL Lymph # (Auto) (1503-7147) /uL [place] # (Auto) (0-900) /uL Eos # (Auto) (0-450) /uL Baso # (Auto) (0-100) /uL D-Dimer (<230) ng/mL Sodium (137-145) mmol/L Potassium (3.4-5.1) mmol/L Chloride (98-107) mmol/L Carbon Dioxide (22-32) mmol/L BUN (7-17) mg/dL Creatinine (0.52-1.04) mg/dL Estimated GFR (>60) mL/min BUN/Creatinine Ratio (6-22) Glucose (70-100) mg/dL Calcium (8.4-10.2) mg/dL Total Bilirubin (0.2-1.3) mg/dL AST (14-36) IU/L ALT (<35) IU/L Alkaline Phosphatase (38-126) U/L Total Creatine Kinase (30-135) U/L CK-MB (CK-2) CK-MB (CK-2) Rel Index Troponin I < 0.012 (0.01-0.034) ng/mL NT-Pro-B Natriuret Pep (<125) pg/mL Total Protein (6.3-8.2) g/dL Albumin (3.5-5.0) g/dL Globulin (1.7-4.1) g/dL Albumin/Globulin Ratio (1.0-2.8) Lipase (23-300) U/L Imaging Data Chest x-ray: Radiologist's Impression: Lilly Paiz 39 F 1980 [place] [address] XRay Report Signed Patient: Lilly Paiz TMR#: [id number] : 1980Acct:[id number] Age/Sex: 39 / FDate of Service: 11/04/19 Loc: ED Accession Number: [id number] Procedure: XR chest 1V Ordering Provider: Jose C Dave D.O. PROCEDURE: XR CHEST 1V INDICATIONS: CP TECHNIQUE: One view of the chest was acquired. COMPARISON: [facility], , XR CHEST 1V, 10/31/2019, 19:23. FINDINGS: Surgical changes and devices: None. Lungs and pleura: Lungs are clear. No pleural effusions or pneumothorax. Mediastinum: Mediastinal contours appear normal. Heart size is normal. Bones and chest wall: No suspicious bony lesions. Overlying soft tissues appear unremarkable. IMPRESSION: No acute cardiopulmonary findings. Dictated by: Millie Paz M.D. on 11/04/2019 at 21:59 Approved by: Millie Paz M.D. on 11/04/2019 at 21:59 ECG Data Attestation: I personally reviewed and interpreted this ECG as follows: Prior ECG tracings: available for review Interpretation: EKG is normal sinus rhythm rate [ 78] and free of any signs of ischemia or ectopy. No ST segmental elevation or depression. No T wave inversions Discharge Plan Departure Patient Disposition: Home Clinical Impression: Atypical chest pain Discharge Date/Time: 11/05/19 00:37 Instructions: DI for Atypical Chest Pain Activity Restrictions/Additional Instructions: *You have been diagnosed with [atypical chest pain. ] *What to do: *Continue to take medications as directed *Follow up with your primary care provider in 2-3 days, call for an appointment. Let them know you were seen in the Emergency Department and that we ask that you be seen in follow up *Return to ER if you should have any new, worsening or concerning symptoms Prescriptions: No Action multivitamin [Multiple Vitamins] 1 EACH tablet 1 tab PO QDAY Qty: 0 RF: 0 Lactobacillus acidophilus 1 EACH capsule 1 tab PO QDAY Qty: 0 RF: 0 Zyrtec 10 mg Capsule 10 mg PO DAILY RF: 0 magnesium chloride tablet 500 mg PO DAILY RF: 0 carvedilol [Coreg] 6.25 mg Tablet 6.25 mg PO BID Qty: 60 RF: 0 chlorthalidone 25 mg Tablet 12.5 mg PO DAILY Qty: 30 RF: 0 aspirin 81 mg Tablet,Delayed Release (Dr/Ec) 81 mg PO DAILY Qty: 30 RF: 0 amlodipine 10 mg tablet 10 mg PO QPM Qty: 30 RF: 0 Referrals: Honey Allen MD [Primary Care Provider] -
[2019-11-04 21:47] VITALS: BP 192/105; PULSE 72; RESP 20; O2SAT 98
[2019-11-04] MEDS: SODIUM CHLORIDE 0.9% 1,000 ML 150 ML IV (21:49)
[2019-11-04 21:53] LABS: Add Manual Diff / Slide Review NO; Basophils Absolute Auto 0 /uL (0-100); Basophils Percent Auto 0.4 % (0-2); Eosinophils Absolute Auto 200 /uL (0-450); Eosinophils Percent Auto 2.4 % (2-4); Hemoglobin 11.7 g/dL (12.0-16.0); Lymphocytes Absolute Auto 2700 /uL (1100-4500); Lymphocytes Percent Auto 35.3 % (25-40); Mean Corpuscular HGB Conc 33.3 % (30-36); Mean Corpuscular Hemoglobin 26.7 PG (26-34); Mean Corpuscular Volume 79.9 fL (80-100); Monocytes Absolute Auto 700 /uL (0-900); Monocytes Percent Auto 8.8 % (3-14); Neutrophils Absolute Auto 4100 /uL (1500-7000); Neutrophils Percent Auto 53.1 % (50-75); Platelet Count 359 X10^3/uL (150-400); Red Blood Cell Count 4.38 X10^6/uL (4.0-5.2); Red Cell Distribution Width 15.9 % (11.6-14.8); White Blood Cell Count 7.8 X10^3/uL (4.5-11.0)
[2019-11-04 22:02] LABS: Alanine Aminotransferase 15 IU/L (<35); Albumin 4.7 g/dL (3.5-5.0); Albumin Globulin Ratio 1.4 (1.0-2.8); Alkaline Phosphatase 85 U/L (38-126); Aspartate Aminotransferase 21 IU/L (14-36); BUN Creatinine Ratio 16.9 (6-22); Bilirubin Total 0.1 mg/dL (0.2-1.3); Blood Urea Nitrogen 12 mg/dL (7-17); Calcium 9.2 mg/dL (8.4-10.2); Carbon Dioxide 28 mmol/L (22-32); Chloride 99 mmol/L (98-107); Creatine Kinase 30 U/L (30-135); Estimated Glomerular Filt Rate > 60.0 mL/min (>60); Globulin 3.4 g/dL (1.7-4.1); Glucose 162 mg/dL (70-100); HEMOLYSIS < 15 (0-50); Lipase 99 U/L (23-300); Potassium 3.6 mmol/L (3.4-5.1); Sodium 136 mmol/L (137-145); Total Protein 8.1 g/dL (6.3-8.2)
[2019-11-04 22:05] LABS: D Dimer < 200 ng/mL (<230)
[2019-11-04 22:11] VITALS: BP 143/91; PULSE 75; RESP 18
[2019-11-04 22:14] LABS: NT-proBNP (BNP-Adult 18+) 24 pg/mL (<125); Troponin I < 0.012 ng/mL (0.01-0.034)
[2019-11-05 00:18] LABS: Troponin I < 0.012 ng/mL (0.01-0.034)
[2019-11-05 00:37] VITALS: BP 143/78; PULSE 66; RESP 16; O2SAT 98
== END 2019-11-05 00:37 | disposition home or self-care (01) ==
PROVIDERS: Emergency Provider Emergency Medicine; Family Provider Family Medicine; PCP Family Medicine
DX: R07.89 Other chest pain (principal); I10 Essential (primary) hypertension
CPT/HCPCS: 36415; 71045; 80053; 82550; 83690; 83880; 84484; 85025; 85379; 93005; 96360; 96361; 99283; 99284

== ENCOUNTER → 2020-03-31 15:03 | Outpatient (CLI) | payer OTHER, SELFPAY ==
[2019-10-31 22:10] VITALS: BMI 34.2
--- NOTE | 2020-03-31 15:04 | DI.MG.S_ITS ---
BILATERAL DIGITAL SCREENING MAMMOGRAM 3D/2D WITH CAD: 03/31/2020 CLINICAL: Routine screening. Baseline exam. Family history of breast cancer. No prior exams were available for comparison. The tissue of both breasts is heterogeneously dense. This may lower the sensitivity of mammography. Current study was also evaluated with a Computer Aided Detection (CAD) system. No significant masses, calcifications, or other findings are seen in either breast. IMPRESSION: NEGATIVE There is no mammographic evidence of malignancy. A 1 year screening mammogram is recommended. This exam was interpreted at Station ID: [id number]. NOTE: For mammograms, a report in lay terms will be sent to the patient. Approximately 15% of breast malignancies will not be visualized mammographically. In the management of a palpable breast mass, a negative mammogram must not discourage biopsy of a clinically suspicious lesion. Electronically Signed By: Crow silva/sudha:03/31/2020 17:09:40 letter sent: Normal Exam ACR BI-RADS Category 1: Negative [id number]
--- NOTE | 2020-03-31 15:04 | DI.US.S_ITS ---
PROCEDURE: US ABDOMEN LIMITED INDICATIONS: chest pain/RUQ abdominal pain, eval gallbladder TECHNIQUE: Real-time focused scanning was performed of the abdomen, with image documentation. COMPARISON: None. FINDINGS: Liver is diffusely increased in echogenicity. No focal hepatic abnormalities identified. Normal hepatic size.. No gallstones identified. Normal gallbladder wall. No pericholecystic fluid. Negative sonographic Velazco sign. No biliary dilatation. Observed portions of the pancreas appear normal. IMPRESSION: Increased hepatic echogenicity noted possibly related to hepatic steatosis but other sources of hepatocellular disease cannot be excluded. Recommend clinical correlation. Limited exam demonstrating no source for right upper quadrant pain. Dictated by: Rakan KELLY Interpreted: Papi Almazan MD on 03/31/2020 at 16:10 Approved by: Papi Almazan M.D. on 03/31/2020 at 17:18
== END ==
PROVIDERS: Family Provider Family Medicine; PCP Family Medicine; Referring Provider Family Medicine; Visit Provider Family Medicine
DX: Z12.31 Encounter for screening mammogram for malignant neoplasm of breast (principal); Z80.3 Family history of malignant neoplasm of breast; R10.11 Right upper quadrant pain; R07.9 Chest pain, unspecified
CPT/HCPCS: 76705; 77063; 77067

== ENCOUNTER → 2020-04-01 18:15 | Outpatient (CLI) | payer OTHER, SELFPAY ==
[2019-10-31 22:10] VITALS: BMI 34.2
== END ==
PROVIDERS: Family Provider Family Medicine; PCP Family Medicine; Referring Provider Internal Medicine; Visit Provider Internal Medicine
DX: Z23 Encounter for immunization (principal)
CPT/HCPCS: 90471; 90686

== ENCOUNTER → 2020-07-08 13:04 | Outpatient (CLI) | payer OTHER, SELFPAY ==
[2019-10-31 22:10] VITALS: BMI 34.2
[2020-07-08] MEDS: COVID-19 VACC(MODERNA-1)/PF 100 MCG/0.5 ML VIAL IM (13:08)
== END ==
PROVIDERS: Family Provider Family Medicine; PCP Family Medicine; Visit Provider Internal Medicine
DX: Z23 Encounter for immunization (principal)
CPT/HCPCS: 0011A; 91301

== ENCOUNTER → 2020-08-07 10:39 | Outpatient (CLI) | payer OTHER, SELFPAY ==
[2019-10-31 22:10] VITALS: BMI 34.2
[2020-08-07] MEDS: COVID-19 VACC #2, MRNA(MOD) 100 MCG/0.5 ML VIAL IM (10:43)
== END ==
PROVIDERS: Family Provider Family Medicine; PCP Family Medicine; Visit Provider Internal Medicine
DX: Z23 Encounter for immunization (principal)
CPT/HCPCS: 0012A; 91301

== ENCOUNTER → 2020-12-28 08:52 | Outpatient (CLI) | payer BC, SELFPAY ==
[2019-10-31 22:10] VITALS: BMI 34.2
--- NOTE | 2020-12-28 08:54 | DI.US.S_ITS ---
PROCEDURE: US THYROID INDICATIONS: ENLARGED THYROID TECHNIQUE: Real-time scanning was performed of the thyroid gland, with image documentation. COMPARISON: None. FINDINGS: Right: Thyroid lobe measures 6.2 x 2.8 x 2.3 cm, and is diffusely heterogeneous in echotexture. Left: Thyroid lobe measures 6.0 x 2.0 x 2.5 cm, and is diffusely heterogeneous in echotexture. Isthmus: 3.0 mm thick. Nodule number: 1 Location: Left superior Size: 1.2 x 0.8 x 0.9 cm. Composition: Predominantly cystic Echogenicity: Hypoechoic Shape: wider than tall. Margins: Smooth Echogenic foci: None Total points: 2 ACR TI-RADS category: Not suspicious Nodule number: 2 Location: Left mid to superior Size: 1.5 x 1.2 x 1.4 cm. Composition: Solid Echogenicity: Predominantly hypoechoic Shape: wider than tall. Margins: Smooth Echogenic foci: Macro calcifications Total points: 6 ACR TI-RADS category: Moderately suspicious Nodule number: 3 Location: Left inferior Size: 2.7 x 1.9 x 2.5 cm. Composition: Solid Echogenicity: Mildly hypoechoic Shape: wider than tall. Margins: Smooth Echogenic foci: None Total points: 4 ACR TI-RADS category: Moderately suspicious Nodule number: 4 Location: Right mid Size: 3.8 x 3.0 x 3.1 cm. Composition: Solid Echogenicity: Isoechoic Shape: wider than tall. Margins: Small Echogenic foci: None Total points: 3 ACR TI-RADS category: Mildly suspicious Nodule number: 5 Location: Right inferior Size: 2.3 x 1.4 x 2.1 cm. Composition: Solid Echogenicity: Isoechoic Shape: wider than tall. Margins: Smooth Echogenic foci: None Total points: 3 ACR TI-RADS category: Mildly suspicious IMPRESSION: 1. Bilateral thyroid nodules as above. Recommend sonographically directed fine-needle aspiration involving the left #3 and right #4 nodules and continued sonographic surveillance. ACR TI-RADS definitions and recommendations: TI-RADS 1 (benign): 0 points. FNA not needed. TI-RADS 2 (not suspicious): 2 points. FNA not needed. TI-RADS 3 (mildly suspicious): 3 points. * FNA if 2.5 cm or larger, follow up if 1.5 cm or larger (at 1, 3, and 5 years). TI-RADS 4 (moderately suspicious): 4-6 points. * FNA if 1.5 cm or larger, follow up if 1 cm or larger (at 1, 2, 3, and 5 years). TI-RADS 5 (highly suspicious): 7 points or more. * FNA if 1 cm or larger, follow up if 0.5 cm or larger (every year for 5 years). Dictated by: Rakan Simpson [facility] Interpreted: Lenny Mcclellan MD on 12/28/2020 at 9:55 Transcribed by: SIVA on 12/28/2020 at 10:00 Approved by: Lenny Mcclellan M.D. on 12/28/2020 at 15:20
== END ==
PROVIDERS: Family Provider Family Medicine; PCP Family Medicine; Referring Provider Family Medicine; Visit Provider Family Medicine
DX: E04.2 Nontoxic multinodular goiter (principal)
CPT/HCPCS: 76536

== ENCOUNTER → 2021-01-08 09:07 | Outpatient (CLI) | payer BC, SELFPAY ==
[2019-10-31 22:10] VITALS: BMI 34.2
[2020-12-31 11:21] VITALS: BMI 34.2
--- NOTE | 2021-01-08 | PATH_ITS ---
Note [facility] Accession Number: [id number] TESTS RESULT FLAG UNITS REF RANGE LAB Clinician Provided Cytology Information No. of containers..01 Other (Miscellaneous) No. of containers..00 Previously Prepared Cytology Slide 01 R THYROID NODULE FNA DIAGNOSIS: 02 R THYROID NODULE FNA NEGATIVE FOR MALIGNANT CELLS. BETHESDA CATEGORY II. SPECIMEN CONSISTS OF BENIGN FOLLICULAR CELLS, HEMOSIDERIN-LADEN MACROPHAGES, COLLOID, AND BLOOD. THIS PATTERN IS CONSISTENT WITH A BENIGN FOLLICULAR NODULE. Pathologist ICD10: 02 E04.1 02 Rebecca Lee MD, Pathologist NPI- [id number] Zac Huffman, Applications Tester ([facility]) 01 30 CC PALE PINK CLEAR FLUID IN TP CYTOLYT ALSO received 1 RNA, 5 alcohol fixed, and 5 quick-stained slides. /[facility] 01/11/[address] [place] [address] FLAG LEGEND: L-Low Normal,H-High Normal,LL-Alert Low,HH-Alert High <-Panic Low,>-Panic High,A-Abnormal,AA-Critical Abnormal Performed at: 01 =Z [facility] [address], [place] [address] Anand Silvestre MD, 02 [facility]I [facility] [address] [place] [phone] Caroline Morris MD, Performed at: 01 [facility] [address], [place], [place] [id number] MD Anand Silvestre MD Phone: [phone]
--- NOTE | 2021-01-08 | PATH_ITS ---
Note LCA Accession Number: [id number] TESTS RESULT FLAG UNITS REF RANGE LAB Clinician Provided Cytology Information No. of containers..01 Other (Miscellaneous) No. of containers..00 Previously Prepared Cytology Slide 01 L THYROID NODULE FNA DIAGNOSIS: 02 L THYROID NODULE FNA NEGATIVE FOR MALIGNANT CELLS. BETHESDA CATEGORY II. SPECIMEN CONSISTS OF BENIGN FOLLICULAR CELLS, HEMOSIDERIN-LADEN MACROPHAGES, COLLOID, AND BLOOD. THIS PATTERN IS CONSISTENT WITH A BENIGN FOLLICULAR NODULE. Pathologist ICD10: 02 E04.1 02 Rebecca Lee MD, Pathologist NPI- [id number] 01 Serge Antoine, Drafter Electronic ([facility]) 01 30 CC PALE PINK, CLEAR FLUID IN TP CYTOLYT Also received 1 RNA vial, 5 alcohol fixed, and 5 quick-stained slides /[facility] 01/11/2021 1021 Local FLAG LEGEND: L-Low Normal,H-High Normal,LL-Alert Low,HH-Alert High <-Panic Low,>-Panic High,A-Abnormal,AA-Critical Abnormal Performed at: 01 =Z [facility] [address], [place] [address] Anand Silvestre MD, 02 [facility] [address] [place] [phone] Caroline Morris MD, Performed at: 01 [facility] [address], [place], [place] [id number] MD Anand Silvestre MD Phone: [phone]
--- NOTE | 2021-01-08 09:08 | DI.US.S_ITS ---
PROCEDURE: 1. Ultrasound-guided fine-needle aspiration of right thyroid nodule 4. 2. Ultrasound-guided fine-needle aspiration of left thyroid nodule 3. INDICATIONS: BILATERAL THYROID NODULES TECHNIQUE: The indications, alternatives, benefits, risks, and complications of the procedure were explained to the patient. Written informed consent was obtained and placed in the chart. The thyroid region was examined sonographically and a site was chosen for ultrasound guided percutaneous sampling. The skin was prepared and draped in the usual fashion, and anesthetized with 1% lidocaine infiltrated from the skin down to the thyroid gland. Multiple passes were then performed, with contents emptied into an appropriate pathology specimen container. A bandage was applied to the area of access at completion of the study. COMPARISON:[facility], US, US THYROID, 12/28/2020, 9:02 FINDINGS: Location(s) of lesion(s) sampled: Left thyroid nodule 3. Right thyroid nodule 4. [place]: 25 gauge hypodermic needles. Number of passes: 6 passes for each nodule Medications: 1% lidocaine for local anaesthesia. Complications: None. IMPRESSION: Successful ultrasound-guided thyroid nodule fine needle aspiration, with cytology results pending. Please see chart below for management recommendations based on cytology results. [facility] ReportingRecommendationsNon-diagnostic* Repeat US-guided FNA, with on-site cytology evaluation if possible. * Repeated non-diagnostic nodules without high suspicion US features: close observation vs surgical consult. * Consider surgery if nodule has high suspicion US features, grows >20% in 2 dimensions on followup, or patient has clinical risk factors for malignancy. Benign* If nodule has high suspicion US features: repeat US and FNA within 12 months. * If nodule has low to intermediate suspicion US features: repeat US at 12-24 months. If nodule grows (20% increase in at least 2 dimensions, with minimal increase of 2 mm or >50% change in volume), or development of new suspicious US features, then repeat FNA or continue followup. * If nodule has very low suspicion US features: followup US at >24 months. Atypia of undetermined significance, follicular lesion of undetermined significanceRepeat FNA, molecular testing, followup US, or surgical consult.Follicular neoplasm, suspicious for follicular neoplasmSurgical consult; also consider molecular testing. Suspicious for malignancySurgical consult.MalignantSurgical consult. Dictated by: Marlin Enriquez M.D. on 01/08/2021 at 10:51 Approved by: Marlin Enriquez M.D. on 01/08/2021 at 10:52
== END ==
PROVIDERS: Family Provider Family Medicine; PCP Family Medicine; Referring Provider Family Medicine; Visit Provider Family Medicine
DX: E04.2 Nontoxic multinodular goiter (principal)
CPT/HCPCS: 10005; 10006

== ENCOUNTER → 2021-01-11 16:41 | Outpatient (CLI) | payer BC, SELFPAY ==
[2020-12-31 11:21] VITALS: BMI 34.2
[2021-01-11 18:50] LABS: Free T3, Triiodothyronine Free 3.89 pg/mL (2.77-5.27); Free T4, Direct Thyroxine 1.12 ng/dL (0.78-2.19)
[2021-01-14 12:36] LABS: Triiodothyronine T3 Reverse 16.5 ng/dL (9.2-24.1)
== END ==
PROVIDERS: Family Provider Family Medicine; PCP Family Medicine; Referring Provider Family Medicine; Visit Provider Family Medicine
DX: E04.1 Nontoxic single thyroid nodule (principal)
CPT/HCPCS: 36415; 84439; 84443; 84481; 84482

== ENCOUNTER → 2021-02-02 07:37 | Outpatient (CLI) | payer BC, SELFPAY ==
[2020-12-31 11:21] VITALS: BMI 34.2
[2021-02-02 08:47] LABS: Blood Urea Nitrogen 7 mg/dL (7-17); Calcium 9.3 mg/dL (8.4-10.2); Carbon Dioxide 26 mmol/L (22-32); Chloride 104 mmol/L (98-107); Estimated Glomerular Filt Rate > 60.0 mL/min (>60); Glucose 119 mg/dL (70-100); HEMOLYSIS < 15 (0-50); Potassium 3.8 mmol/L (3.4-5.1); Sodium 137 mmol/L (137-145)
[2021-02-03 19:18] LABS: Anti Thyroglobulin Antibody <1.0 IU/mL (0.0-0.9); Thyroid Peroxidase Antibodies <8 IU/mL (0-34)
[2021-02-05 13:18] LABS: Metanephrine,Plasma 10.1 pg/mL (0.0-88.0)
[2021-02-12 11:10] LABS: Aldosterone/Renin Activity Rat 9.2 (0.0-30.0); Plama Renin, LC/MS/MS 0.941 ng/mL/hr (0.167-5.380)
== END ==
PROVIDERS: Family Provider Family Medicine; PCP Family Medicine; Referring Provider Internal Medicine; Visit Provider Internal Medicine
DX: I15.9 Secondary hypertension, unspecified (principal)
CPT/HCPCS: 36415; 80048; 82088; 83835; 83970; 84244; 86376; 86800

== ENCOUNTER → 2021-02-04 07:48 | Outpatient (CLI) | payer BC, SELFPAY ==
[2020-12-31 11:21] VITALS: BMI 34.2
[2021-02-04 11:13] LABS: Cortisol AM (Before 10AM) 0.91 ug/dL (4.46-22.7)
[2021-02-10 23:14] LABS: Dexamethasone, Serum 315 ng/dL (.)
== END ==
PROVIDERS: Family Provider Family Medicine; PCP Family Medicine; Referring Provider Internal Medicine; Visit Provider Internal Medicine
DX: I15.9 Secondary hypertension, unspecified (principal)
CPT/HCPCS: 36415; 80375; 82533

== ENCOUNTER → 2021-02-09 16:18 | Outpatient (CLI) | payer BC, SELFPAY ==
[2020-12-31 11:21] VITALS: BMI 34.2
[2021-02-10 06:10] LABS: Parathyroid Hormone Int 41 pg/mL (15-65)
== END ==
PROVIDERS: Family Provider Family Medicine; PCP Family Medicine; Referring Provider Internal Medicine; Visit Provider Internal Medicine
DX: I15.9 Secondary hypertension, unspecified (principal)
CPT/HCPCS: 83970

== ENCOUNTER → 2021-04-01 08:27 | Outpatient (CLI) | payer BC, SELFPAY ==
[2021-02-10 14:38] VITALS: BMI 34.2
--- NOTE | 2021-04-01 | DI.MG.S_ITS ---
BILATERAL DIGITAL SCREENING MAMMOGRAM 3D/2D WITH CAD: 04/01/2021 CLINICAL: Routine screening. Family history of breast cancer. Comparison is made to exam dated: 03/31/2020 [facility]. The tissue of both breasts is heterogeneously dense. This may lower the sensitivity of mammography. Current study was also evaluated with a Computer Aided Detection (CAD) system. No significant masses, calcifications, or other findings are seen in either breast. There has been no significant interval change. IMPRESSION: NEGATIVE There is no mammographic evidence of malignancy. A 1 year screening mammogram is recommended. This exam was interpreted at Station ID: [id number]. NOTE: For mammograms, a report in lay terms will be sent to the patient. Approximately 15% of breast malignancies will not be visualized mammographically. In the management of a palpable breast mass, a negative mammogram must not discourage biopsy of a clinically suspicious lesion. Electronically Signed By: Wu Vega acr/penrad:04/01/2021 08:57:48 letter sent: Normal Exam ACR BI-RADS Category 1: Negative [id number]
== END ==
PROVIDERS: Family Provider Family Medicine; PCP Family Medicine; Referring Provider Family Medicine; Visit Provider Family Medicine
DX: Z12.31 Encounter for screening mammogram for malignant neoplasm of breast (principal)
CPT/HCPCS: 77063; 77067

== ENCOUNTER → 2021-06-29 12:12 | Outpatient (CLI) | payer BC, SELFPAY ==
[2021-02-10 14:38] VITALS: BMI 34.2
--- NOTE | 2021-06-29 | DI.US.S_ITS ---
PROCEDURE: US THYROID INDICATIONS: Nontoxic multinodular goiter TECHNIQUE: Real-time scanning was performed of the thyroid gland, with image documentation. COMPARISON: [facility], US, US THYROID, 12/28/2020, 9:02. FINDINGS: Right: Thyroid lobe measures 6.2 x 3.3 x 3.6 cm, and is heterogeneous in echotexture. Left: Thyroid lobe measures 6.3 x 2.3 x 2.3 cm, and is heterogeneous in echotexture. Isthmus: 6 mm thick. Nodule number: 1 Location: Left superior thyroid lobe Size: 1.1 x 0.6 x 0.8 cm. Composition: Predominantly solid Echogenicity: Hypoechoic Shape: wider than tall. Margins: Smooth Echogenic foci: None Total points: 4 ACR TI-RADS category: TI-RADS 4 (moderately suspicious) Nodule number: 2 Location: Left superior/mid Size: 1.4 x 1.1 x 1.5 cm. Composition: Predominantly solid Echogenicity: Hyperechoic Shape: wider than tall. Margins: Smooth Echogenic foci: None Total points: 4 ACR TI-RADS category: TI-RADS 4 (moderately suspicious) Nodule number: 3 Location: Left inferior thyroid lobe Size: 2.8 x 2.0 x 2.5 cm. Composition: Predominantly solid Echogenicity: Hyperechoic Shape: wider than tall. Margins: Smooth Echogenic foci: None Total points: 4 ACR TI-RADS category: TI-RADS 4 (moderately suspicious) Nodule number: 4 Location: Right inferior Size: 4.0 x 3.1 x 3.3 cm. Composition: Predominantly solid Echogenicity: Hypoechoic Shape: wider than tall. Margins: Smooth Echogenic foci: None Total points: 4 ACR TI-RADS category: TI-RADS 4 (moderately suspicious) Nodule number: 5 Location: Right inferior Size: 1.5 x 1.5 x 2.1 cm. Composition: Predominantly solid Echogenicity: Hypoechoic Shape: wider than tall. Margins: Smooth Echogenic foci: None Total points: 4 ACR TI-RADS category: TI-RADS 4 (moderately suspicious) IMPRESSION: Heterogeneous, multinodular thyroid gland with 5 TI-RADS 4 nodules as described above. Per ACR recommendations as detailed below, nodule #2 through nodule #5 meet criteria for fine-needle aspiration if not already accomplished. Otherwise, recommend continued imaging surveillance for thyroid nodule #1 as described below. ACR TI-RADS definitions and recommendations: TI-RADS 1 (benign): 0 points. FNA not needed. TI-RADS 2 (not suspicious): 2 points. FNA not needed. TI-RADS 3 (mildly suspicious): 3 points. * FNA if 2.5 cm or larger, follow up if 1.5 cm or larger (at 1, 3, and 5 years). TI-RADS 4 (moderately suspicious): 4-6 points. * FNA if 1.5 cm or larger, follow up if 1 cm or larger (at 1, 2, 3, and 5 years). TI-RADS 5 (highly suspicious): 7 points or more. * FNA if 1 cm or larger, follow up if 0.5 cm or larger (every year for 5 years). Dictated by: Bird Bradshaw M.D. on 06/29/2021 at 13:53 Approved by: Bird Bradshaw M.D. on 06/29/2021 at 14:10
== END ==
PROVIDERS: Family Provider Family Medicine; PCP Family Medicine; Referring Provider Internal Medicine; Visit Provider Internal Medicine
DX: E04.2 Nontoxic multinodular goiter (principal)
CPT/HCPCS: 76536

== ENCOUNTER → 2021-08-16 09:44 | Outpatient (CLI) | payer BC, SELFPAY ==
[2021-02-10 14:38] VITALS: BMI 34.2
--- NOTE | 2021-08-16 | PATH_ITS ---
Note LCA Accession Number: [id number] TESTS RESULT FLAG UNITS REF RANGE LAB Clinician Provided Cytology Information No. of containers..01 Other (Miscellaneous) No. of containers..02 Previously Prepared Cytology Slide Source: L THYROID NODULE #2 DIAGNOSIS: L THYROID NODULE #2 INCONCLUSIVE. BETHESDA CATEGORY III. ATYPIA OF UNDETERMINED SIGNIFICANCE. MOLECULAR STUDIES PENDING; RESULTS WILL BE REPORTED AN ADDENDUM. PLEASE SEE COMMENT. COMMENT: The specimen is scantly cellular and consists of a rare follicular cell group with focal architectural and cytologic atypia. Molecular testing is requested ([facility]); results will be reported as an addendum. Pathologist ICD10: 02 R89.6 Signed out by: Rebecca Lee MD, Pathologist NPI- [id number] Performed by: Zac Huffman, Lithographic Press Operator Apprentice ([facility]) Gross description: 01 30 CC, PALE PINK, CLEAR Also, 1 RNA vial, 6 quick-stained and 6 alcohol fixed slides rec'd. /[facility] 08/17/2021 1259 Local FLAG LEGEND: L-Low Normal,H-High Normal,LL-Alert Low,HH-Alert High <-Panic Low,>-Panic High,A-Abnormal,AA-Critical Abnormal Performed at: 01 =Z [facility] [address] [place] [address] [address], [place] [address] Anand Silvestre MD, 02 [facility] [address] [place] [phone] Caroline Morris MD, Performed at: 01 [facility] [address] [place] [id number] MD Anand Silvestre MD Phone: [phone]
--- NOTE | 2021-08-16 | PATH_ITS ---
Note LCA Accession Number: [id number] TESTS RESULT FLAG UNITS REF RANGE LAB Clinician Provided Cytology Information No. of containers..01 Other (Miscellaneous) No. of containers..00 Previously Prepared Cytology Slide Source: R THYROID NODULE #5 DIAGNOSIS: R THYROID NODULE #5 NEGATIVE FOR MALIGNANT CELLS. BETHESDA CATEGORY II. SPECIMEN CONSISTS OF BENIGN FOLLICULAR CELLS, HEMOSIDERIN-LADEN MACROPHAGES, COLLOID, AND BLOOD. THIS PATTERN IS CONSISTENT WITH A COLLOID NODULE. Pathologist ICD10: 02 E04.1 Signed out by: Rebecca Lee MD, Pathologist NPI- [id number] Performed by: Ras Hernandes, Table Games Dealer ([facility]) Gross description: 01 30 CC, COLORLESS, CLEAR Also received 1 RNA vial, 5 quick-stained and 5 alcohol fixed slides. /[facility] 08/17/2021 [facility]2 Local FLAG LEGEND: L-Low Normal,H-High Normal,LL-Alert Low,HH-Alert High <-Panic Low,>-Panic High,A-Abnormal,AA-Critical Abnormal Performed at: 01 =Z [facility] [address] [place] [address], [place] [address] Anand Silvestre MD, 02 [facility] [address] [place] [phone] Caroline Morris MD, Performed at: [facility] [address] [place] [address] [facility], [place], [place] [id number] MD Anand Silvestre MD Phone: [phone]
--- NOTE | 2021-08-16 | DI.US.S_ITS ---
PROCEDURE: US FINE NEEDLE ASPIRATION INDICATIONS: Nontoxic multinodular goiter X 2 TECHNIQUE: The indications, alternatives, benefits, risks, and complications of the procedure were explained to the patient. Written informed consent was obtained and placed in the chart. The area of interest was examined sonographically and a site was chosen for ultrasound guided percutaneous sampling. The skin was prepared and draped in the usual fashion, and anesthetized with 1% lidocaine infiltrated from the skin down to the lesion. Multiple passes were then performed, with contents emptied into an appropriate pathology specimen container. A bandage was applied to the area of access at completion of the study. COMPARISON: [facility]erged with [facility], FINE NEEDLE ASPIRATION, 01/08/2021, 9:27. FINDINGS: Location(s) of lesion(s) sampled: Left upper and right inferior poles [place]: 25 gauge hypodermic needles. Number of passes: 6 passes per nodule Medications: 1% lidocaine for local anaesthesia. Complications: None. IMPRESSION: Successful ultrasound-guided bilateral fine needle aspiration, with cytology results pending. Dictated by: Jareth Chiang M.D. on 08/16/2021 at 12:53 Approved by: Jareth Chiang M.D. on 08/16/2021 at 12:54
== END ==
PROVIDERS: Family Provider Family Medicine; PCP Family Medicine; Referring Provider Internal Medicine; Visit Provider Internal Medicine
DX: E04.2 Nontoxic multinodular goiter (principal)
CPT/HCPCS: 10005

== ENCOUNTER → 2021-11-23 07:32 | Outpatient (CLI) | payer BC, SELFPAY ==
[2021-02-10 14:38] VITALS: BMI 34.2
[2021-11-23 08:43] LABS: Hematocrit 34.7 % (36-46); Mean Corpuscular HGB Conc 34.6 % (30-36); Mean Corpuscular Hemoglobin 30.1 PG (26-34); Platelet Count 242 X10^3/uL (150-400); Red Blood Cell Count 3.99 X10^6/uL (4.0-5.2); Red Cell Distribution Width 12.8 % (11.6-14.8); White Blood Cell Count 4.9 X10^3/uL (4.5-11.0)
[2021-11-23 09:21] LABS: BUN Creatinine Ratio 14.8 (6-22); Blood Urea Nitrogen 8 mg/dL (7-17); Carbon Dioxide 26 mmol/L (22-32); Chloride 104 mmol/L (98-107); Estimated Glomerular Filt Rate > 60 mL/min (>60); Glucose 115 mg/dL (70-100); HEMOLYSIS < 15 (0-50); Magnesium 1.8 mg/dL (1.6-2.3); Potassium 3.7 mmol/L (3.4-5.1); Sodium 139 mmol/L (137-145)
== END ==
PROVIDERS: Family Provider Family Medicine; PCP Family Medicine
DX: I10 Essential (primary) hypertension (principal); R00.2 Palpitations
CPT/HCPCS: 36415; 80048; 83735; 85027

== ENCOUNTER → 2022-04-04 07:22 | Outpatient (CLI) | payer BC, SELFPAY ==
[2021-02-10 14:38] VITALS: BMI 34.2
--- NOTE | 2022-04-04 | DI.MG.S_ITS ---
BILATERAL DIGITAL SCREENING MAMMOGRAM 3D/2D WITH CAD: 04/04/2022 CLINICAL: Routine screening. Family history of breast cancer. Comparison is made to exams dated: 04/01/2021 mammogram and 03/31/2020 mammogram - [facility]. Both breasts are heterogeneously dense, which may obscure small masses (category c / 51-75% glandular tissue). Current study was also evaluated with a Computer Aided Detection (CAD) system. No significant masses, calcifications, or other findings are seen in either breast. There has been no significant interval change. IMPRESSION: NEGATIVE There is no mammographic evidence of malignancy. A 1 year screening mammogram is recommended. This exam was interpreted at Station ID: [id number]. NOTE: For mammograms, a report in lay terms will be sent to the patient. Approximately 15% of breast malignancies will not be visualized mammographically. In the management of a palpable breast mass, a negative mammogram must not discourage biopsy of a clinically suspicious lesion. Electronically Signed By: Shaw barton/sudha:04/04/2022 08:55:53 letter sent: Normal Exam ACR BI-RADS Category 1: Negative 3341F
== END ==
PROVIDERS: Family Provider Family Medicine; PCP Family Medicine; Referring Provider Family Medicine; Visit Provider Family Medicine
DX: Z12.31 Encounter for screening mammogram for malignant neoplasm of breast (principal); Z80.3 Family history of malignant neoplasm of breast
CPT/HCPCS: 77063; 77067

== ENCOUNTER → 2022-05-30 07:29 | Outpatient (CLI) | payer BC, SELFPAY ==
[2021-02-10 14:38] VITALS: BMI 34.2
[2022-05-30 09:54] LABS: Calcium 8.7 mg/dL (8.4-10.2)
[2022-05-30 10:05] LABS: Vitamin D 25 Hydroxy (D3) 26.5 ng/mL (30.0-100.0)
[2022-06-01 07:53] LABS: Parathyroid Hormone Int 38 pg/mL (15-65)
== END ==
PROVIDERS: Family Provider Family Medicine; PCP Family Medicine; Referring Provider Otolaryngology; Visit Provider Otolaryngology
DX: E04.1 Nontoxic single thyroid nodule (principal)
CPT/HCPCS: 36415; 82306; 82310; 83970

== ENCOUNTER → 2022-07-06 13:14 | Outpatient (CLI) | payer BC, SELFPAY ==
[2021-02-10 14:38] VITALS: BMI 34.2
--- NOTE | 2022-07-06 13:16 | DI.MRI.S_ITS ---
PROCEDURE: MR BREAST BI WO/W CON INDICATIONS: diagnostic, Breast CA TECHNIQUE: The patient was placed prone in a dedicated breast imaging coil. Precontrast axial STIR and 3D FLASH without fat saturation sequences were obtained. Both before and after bolus injection of contrast, sequential 1-minute axial 3D FLASH with fat saturation sequences for 3 time points, with subtraction images and maximum intensity projections (MIP's) generated. Delayed sagittal FLASH images with fat saturation were also obtained. Computer-aided detection, including computer algorithm analysis of MRI image data for lesion detection and characterization, pharmacokinetic analysis, with further physician review for interpretation, was performed. COMPARISON: Screening mammogram 04/04/2022 FINDINGS: Image quality: Excellent. There is mild background parenchymal enhancement. Right breast: No suspicious mass, non-mass enhancement, or focus. No suspicious adenopathy. Left breast: No suspicious mass, non-mass enhancement, or focus. No suspicious adenopathy. Miscellaneous: Multiple breast cysts are present, the largest in the central region of the right breast measuring up to 2.3 by 1.4 centimeters. Unremarkable, limited evaluation of the upper abdomen and intrathoracic spectral. IMPRESSION: No suspicious mass, non-mass enhancement, or focus in either breast. Mild background parenchymal enhancement. BIRADS 1: Continue annual screening. COMMENT: The imaging literature indicates that a negative contrast breast MRI examination has a high sensitivity and a moderate specificity for detecting and excluding invasive carcinomas to a detection threshold of 3-5 mm; nonetheless, appropriate clinical and mammographic follow-up are recommended. MRI is not sensitive for detecting DCIS (ductal carcinoma in situ) and may not detect large invasive neoplasms that show only minimal enhancement such as mucinous carcinoma. If there are suspicious calcifications or clinically worrisome palpable masses, then biopsy should still be considered. Invasive neoplasms can be hidden by co-existent and benign enhancement caused by mastitis, hormone therapy effects, radiation therapy, , and recent biopsy or surgery. False positive examinations can occur in a number of circumstances, including breasts that have recently been subject to invasive procedures and those that contain atypical ductal hyperplasia, hormonally stimulated glandular tissue, fat necrosis, or radial scars. Dictated by: Cayden Oneill M.D. on 07/06/2022 at 14:47 Approved by: Cayden Oneill M.D. on 07/06/2022 at 15:02
== END ==
PROVIDERS: Family Provider Family Medicine; PCP Family Medicine; Referring Provider Family Medicine; Visit Provider Family Medicine
DX: Z12.39 Encounter for other screening for malignant neoplasm of breast (principal); N60.01 Solitary cyst of right breast; C73 Malignant neoplasm of thyroid gland; E04.1 Nontoxic single thyroid nodule; Z80.3 Family history of malignant neoplasm of breast
CPT/HCPCS: 77049; A9579

== ENCOUNTER 2022-12-22 07:25 | Day surgery (SDC) | payer BC, SELFPAY ==
[2021-02-10 14:38] VITALS: BMI 34.2
[2022-12-22 07:41] VITALS: BP 130/80; PULSE 67; RESP 17; TEMP 36.9; O2SAT 100; BMI 25.1
--- NOTE | 2022-12-22 07:52 | PM.HP.1 ---
History of Present Illness History of Present Illness Date Patient Seen: 12/22/22 Time Patient Seen: 07:53 Chief complaint: Colonoscopy Narrative: Lilly is a 42-year-old woman who presents with rectal bleeding. She has never had a colonoscopy. See office note from October for details. She believes she has had 1 additional episode of rectal bleeding since then. COUNTS INCLUDE 234 BEDS AT THE [facility] Medical History Anxiety No significant medical problems Thyroid nodule Surgical History (Updated 12/22/22 @ 07:37 by Shayna Griffin RN) H/O thyroidectomy History of third molar tooth extraction Status post knee surgery Family History Father Age: 76 Prostate cancer Mother Age: 66 Hypertension Sister Thyroid disease Grandmother Stroke Social History household members: spouse Smoking Status: Never smoker Meds Home Medications and Allergies Home Medications Medication Instructions Recorded Confirmed Type cetirizine 10 mg capsule (Zyrtec) 10 mg PO DAILY allergies 10/31/19 12/22/22 History carvedilol 6.25 mg tablet See Rx Instructions .Route 08/10/20 12/22/22 Rx .COMPLEX #180 tabs levothyroxine 125 mcg tablet 125 mcg PO DAILY 10/18/22 12/22/22 History Lactobacillus acidophilus 10 10,000 mmu cells PO DAILY 12/22/22 12/22/22 History billion cell capsule (Probiotic) cholecalciferol (vitamin D3) 25 25 mcg PO DAILY 12/22/22 12/22/22 History mcg (1,000 unit) capsule (Vitamin D3) Allergies Allergy/AdvReac Type Severity Reaction Status Date / Time No Known Drug Allergies Allergy Verified 12/22/22 07:37 Exam Vital Signs (past 8 hours): - 12/22/22 07:41 Temperature 98.4 F Pulse Rate 67 Respiratory Rate 17 Blood Pressure 130/80 Pulse Oximetry 100 Oxygen Delivery Method Room Air Oxygen Delivery Method Room Air Const General: healthy appearing Assessment & Plan Assessment and plan (1) Rectal bleeding: Status: Acute Plan 42-year-old woman with rectal bleeding. We reviewed the risks and benefits of colonoscopy and she would like to proceed.
[2022-12-22] MEDS: LACTATED RINGERS 1,000 ML 42 ML IV (07:53)
[2022-12-22 09:06] VITALS: BP 99/51; PULSE 70; RESP 14; TEMP 36.6; O2SAT 97
--- NOTE | 2022-12-22 09:07 | PM.OP.COLON ---
Operative Date/Time/Diagnoses Date of procedure: 12/22/22 Time of procedure: 09:07 Pre-op diagnosis: Rectal bleeding Post-op diagnosis: same Procedure & Clinicians Study performed: Colonoscopy Same procedure as scheduled: Yes Surgeon: Aguilar Garcia Procedure Notes Procedure in detail: Surgeon: Aguilar Garcia MD Anesthesia: Keith Gutierrez CRNA Procedure: The patient was brought to the endoscopy suite, placed in left lateral decubitus position. The patient was connected to monitoring devices. A time-out was performed. Sedation was administered. Once the patient was adequately sedated, a digital rectal exam was performed and was normal. The scope was then inserted and advanced to the cecum where the appendiceal orifice was identified and photographed. The scope was then slowly withdrawn over greater than 6 minutes. The mucosa was thoroughly inspected. No abnormalities were seen. The scope was retroflexed in the rectum. Only mild hemorrhoids were seen. The scope was straightened and removed. The patient was awakened and brought to recovery. Scope withdrawal time: 7 minutes Sedation time: 16 minutes EBL: 0 Findings: Normal colon, mild internal hemorrhoids Post-procedure Recommendations: Colonoscopy in 10 years Disposition: PACU
[2022-12-22 09:11] VITALS: BP 102/56; PULSE 73; RESP 18; O2SAT 100
[2022-12-22 09:18] VITALS: BP 102/56; PULSE 73; RESP 14; TEMP 36.4; O2SAT 100
[2022-12-22 09:20] VITALS: BP 137/85; PULSE 65; RESP 18; TEMP 36.2; O2SAT 100
== END 2022-12-22 09:32 | disposition home or self-care (01) ==
PROVIDERS: Family Provider Family Medicine; PCP Family Medicine; Referring Provider Surgery; Visit Provider Surgery
PROC: 0DJD8ZZ Inspection of Lower Intestinal Tract, Via Natural or Artificial Opening Endoscopic (ICD-10-PCS; CPT 45378; principal; 2022-12-22 08:30)
DX: K62.5 Hemorrhage of anus and rectum (principal); K64.8 Other hemorrhoids
CPT/HCPCS: 45378; J2704

== ENCOUNTER → 2023-04-07 12:55 | Outpatient (CLI) | payer BC, SELFPAY ==
[2021-02-10 14:38] VITALS: BMI 34.2
--- NOTE | 2023-04-07 12:56 | DI.US.S_ITS ---
ULTRASOUND OF RIGHT BREAST: 04/07/2023 CLINICAL: Palpable right breast lump. Comparison is made to exams dated: 04/07/2023 mammogram, 07/06/2022 breast MRI, 04/04/2022 mammogram, 04/01/2021 mammogram, and 03/31/2020 mammogram - [facility]. Color flow and real-time ultrasound of the right breast were performed. Harkins scale images of the real-time examination were reviewed. There is a 2.7 cm x 1.4 cm x 1.7 cm wider than tall oval cyst in the right breast at 10 o'clock middle depth 4 cm from the nipple. This oval cyst is anechoic with posterior acoustic enhancement. This correlates as palpated, with mammography findings, and area of clinical concern. Color flow imaging demonstrates that there is no vascularity present. IMPRESSION: BENIGN There is no sonographic evidence of malignancy. The 2.7 cm x 1.4 cm x 1.7 cm wider than tall oval simple cyst in the right breast is benign. Recommend clinical follow up for persistent or worsening symptoms, or development of any clinically suspicious findings. Cyst aspiration can be considered if cyst increases substantially in size or if it becomes painful. A 1 year screening mammogram is recommended. Findings and recommendations were conveyed to the patient during today's evaluation. This exam was interpreted at Station ID: [id number]. Electronically Signed By: Bird Bradshaw M.D. aty/:04/07/2023 14:44:41 letter sent: Clinical Evaluation Ultrasound BI-RADS: 2 Benign
--- NOTE | 2023-04-07 12:56 | DI.MG.S_ITS ---
BILATERAL DIGITAL DIAGNOSTIC MAMMOGRAM 3D/2D: 04/07/2023 CLINICAL: Right lump x's 2 weeks. Due for Bilateral routine. Family history of breast cancer. Comparison is made to exams dated: 04/04/2022 mammogram, 04/01/2021 mammogram, 03/31/2020 mammogram, and 07/06/2022 breast MRI - [facility]. Both breasts are heterogeneously dense, which may obscure small masses (category c / 51-75% glandular tissue). There is a new 2.5 cm oval equal density focal asymmetry with an obscured margin in the right breast at 9 o'clock middle depth. This correlates as palpated, with area of clinical concern, and triangle skin marker. No other significant masses, calcifications, or other findings are seen in either breast. IMPRESSION: INCOMPLETE: NEEDS ADDITIONAL IMAGING EVALUATION The new 2.5 cm oval equal density focal asymmetry in the right breast resembles a cyst or a solid mass and is indeterminate. An ultrasound is recommended for further evaluation and is scheduled to immediately follow this examination. Based on the Tyrer Cuzick model (a risk assessment model) the patient's lifetime risk is 19.8% and her 10 year risk is 3.8%. According to the ACR, ACS, and NCCN guidelines, an annual breast MRI exam along with mammogram is recommended if the patient's lifetime risk is 20% or greater. This exam was interpreted at Station ID: [id number]. NOTE: For mammograms, a report in lay terms will be sent to the patient. Approximately 15% of breast malignancies will not be visualized mammographically. In the management of a palpable breast mass, a negative mammogram must not discourage biopsy of a clinically suspicious lesion. Electronically Signed By: Bird Bradshaw M.D. aty/:04/07/2023 14:18:08 ACR BI-RADS Category 0: Incomplete 3340F
== END ==
PROVIDERS: Family Provider Family Medicine; PCP Family Medicine; Referring Provider Family Medicine; Visit Provider Family Medicine
DX: N64.89 Other specified disorders of breast (principal); N60.01 Solitary cyst of right breast
CPT/HCPCS: 76642; 77066; G0279

== ENCOUNTER 2023-04-20 19:00 | Emergency (ER) | payer BC, SELFPAY ==
[2021-02-10 14:38] VITALS: BMI 34.2
[2023-04-20] VITALS (22 sets, daily range): BP systolic 122–148; BP diastolic 67–86; PULSE 66–81; RESP 13–24; TEMP 37–37.5; O2SAT 97–100; BMI 23.6
--- NOTE | 2023-04-20 19:04 | ED.GENADULT ---
HPI - General Adult General Chief complaint: Recheck/Abnormal Lab/Rx Stated complaint: states labwork shows extreme anemia Time Seen by Provider: 04/20/23 19:04 History of Present Illness HPI narrative: 43-year-old female nonsmoker with history of hypertension, anxiety, thyroid cancer and internal hemorrhoids presents at the request of Cardiology at [facility] due to abnormal outpatient labs. She had been feeling dizzy, weak and lightheaded and actually had a syncopal episode yesterday. She was told she had severe anemia and was instructed to present to the emergency department for evaluation. She states she does frequently have very heavy menstrual cycles and just had a period a few days ago. She states it lasted about 7 days and was as heavy if not heavier than normal. Otherwise she denies any obvious bleeding no dark and tarry stool, no blood in her urine, she does not take anticoagulants. Related Data Home Medications Medication Instructions Recorded Confirmed cetirizine 10 mg capsule (Zyrtec) 10 mg PO DAILY allergies 10/31/19 02/02/23 levothyroxine 125 mcg tablet 125 mcg PO DAILY 10/18/22 02/02/23 Lactobacillus acidophilus 10 10,000 mmu cells PO DAILY 12/22/22 02/02/23 billion cell capsule (Probiotic) cholecalciferol (vitamin D3) 25 25 mcg PO DAILY 12/22/22 02/02/23 mcg (1,000 unit) capsule (Vitamin D3) Previous Rx's Medication Instructions Recorded carvedilol 6.25 mg tablet See Rx Instructions .Route 08/10/20 .COMPLEX #180 tabs ketoconazole 2 % topical cream 1 applic topical BID #60 grams 02/09/23 Allergies Allergy/AdvReac Type Severity Reaction Status Date / Time No Known Drug Allergies Allergy Verified 02/02/23 16:23 Review of Systems Review of Systems Narrative: GENERAL: See HPI HEENT: Denies sinus pain, ear pain, sore throat, difficulty swallowing, dizziness. RESPIRATORY: Denies dyspnea, cough, wheezing, hemoptysis, sputum. CARDIOVASCULAR: See HPI GASTROINTESTINAL: Denies nausea, vomiting, abdominal pain, diarrhea, constipation, melena. : Denies dysuria, frequency, incontinence, hematuria, urinary retention. MUSCULOSKELETAL: denies weakness, joint pain, or bony pain SKIN: Denies rash, skin lesions, or other NEUROLOGIC: Denies weakness, headache, numbness, change in speech, confusion, seizures, incoordination. PSYCHIATRIC: No concerning psychosocial issues. 12 point review of systems is negative except for those stated above Patient History Medical History Thyroid nodule Anxiety No significant medical problems Surgical History H/O thyroidectomy Status post knee surgery History of third molar tooth extraction Family History Father Age: 77 Prostate cancer Mother Age: 67 Hypertension Sister Thyroid disease Grandmother Stroke Social History household members: spouse Smoking Status: Never smoker Smoking Status: Never smoker alcohol intake frequency: holidays/special occasions only Substance Use Type: does not use Exam Narrative Exam Narrative: GENERAL: [43] year old patient appears stated age. Well-developed patient, in mild distress. HEAD: Atraumatic. Normocephalic. EYES: Pupils equal round and reactive. Extraocular motions intact. No scleral icterus. No injection or drainage. ENT: Pale conjunctiva Nose without bleeding, purulent drainage. Throat without erythema, tonsillar hypertrophy or exudate. Airway patent. NECK: Trachea midline. Non tender CARDIOVASCULAR: Regular rate and rhythm without murmurs, gallops, or rubs. RESPIRATORY: Clear to auscultation. Breath sounds equal bilaterally. No wheezes, rales, or rhonchi. GASTROINTESTINAL: Abdomen soft, non-tender, nondistended. EXTREMITIES: No edema or joint tenderness. BACK: Nontender without deformity or crepitance. No flank tenderness. NEURO: AOx3. SKIN: No rash or erythema of visible areas Initial Vital Signs Initial Vital Signs: Vital Signs Temperature 98.6 F 04/20/23 19:04 Pulse Rate 81 04/20/23 19:04 Respiratory Rate 18 04/20/23 19:04 Blood Pressure 137/71 04/20/23 19:04 Pulse Oximetry 100 04/20/23 19:04 Oxygen Delivery Method Room Air 04/20/23 19:04 Course Orders Ordered: ED Orders 04/20/23 19:20 Complete Blood Count AUTO DIFF Stat Comprehensive Metabolic Panel Stat Magnesium Stat Packed Cells Stat Pathologist Review (for CBC) Stat Prothrombin Time INR Stat Type and Screen Stat 04/20/23 19:41 EKG-12 Lead Stat 04/20/23 20:34 UA Complete [Urinalysis and Microscopic] Stat 04/20/23 21:18 US pelvic complete Stat 04/20/23 22:08 CT abdomen pelvis w con Stat 04/21/23 02:29 Hemoglobin and Hematocrit Stat Vital Signs Vital signs: Vital Signs - 8 hr 04/20/23 19:26 04/20/23 19:28 04/20/23 19:28 Temperature Pulse Rate 80 79 Respiratory Rate 13 18 Blood Pressure 148/86 H Pulse Oximetry 99 100 Oxygen Delivery Method 04/20/23 19:30 04/20/23 19:30 04/20/23 20:00 Temperature Pulse Rate 78 Respiratory Rate 16 Blood Pressure 133/83 123/71 Pulse Oximetry 100 Oxygen Delivery Method Room Air 04/20/23 20:00 04/20/23 21:00 04/20/23 21:05 Temperature 99.1 F 99.3 F Pulse Rate 81 78 73 Respiratory Rate 18 24 18 Blood Pressure 122/73 122/73 Pulse Oximetry 100 Oxygen Delivery Method 04/20/23 21:10 04/20/23 21:15 04/20/23 21:30 Temperature 99.2 F 99.5 F Pulse Rate 75 73 72 Respiratory Rate 16 16 23 Blood Pressure 129/77 130/74 Pulse Oximetry 99 Oxygen Delivery Method Room Air 04/20/23 21:30 04/20/23 21:35 04/20/23 21:45 Temperature 99.1 F Pulse Rate Respiratory Rate Blood Pressure 137/79 130/76 Pulse Oximetry Oxygen Delivery Method 04/20/23 22:00 04/20/23 22:00 04/20/23 22:00 Temperature 99.4 F Pulse Rate 74 75 Respiratory Rate 16 19 Blood Pressure 146/69 H 146/69 H Pulse Oximetry 99 Oxygen Delivery Method 04/20/23 22:30 04/20/23 22:47 04/20/23 22:47 Temperature Pulse Rate 72 72 Respiratory Rate 22 Blood Pressure 147/74 H Pulse Oximetry 99 99 Oxygen Delivery Method Room Air 04/20/23 22:48 04/20/23 23:00 04/20/23 23:01 Temperature 98.8 F Pulse Rate 66 66 Respiratory Rate 18 19 Blood Pressure Pulse Oximetry 97 98 Oxygen Delivery Method Room Air 04/20/23 23:01 04/20/23 23:30 04/20/23 23:30 Temperature 99.2 F Pulse Rate 69 Respiratory Rate 16 Blood Pressure 127/85 126/72 Pulse Oximetry Oxygen Delivery Method 04/20/23 23:30 04/20/23 23:30 04/20/23 23:45 Temperature 99.5 F Pulse Rate 68 72 Respiratory Rate 17 16 Blood Pressure 126/72 129/77 Pulse Oximetry 97 Oxygen Delivery Method 04/20/23 23:45 04/20/23 23:45 04/20/23 23:50 Temperature 99.3 F Pulse Rate 69 68 Respiratory Rate 23 16 Blood Pressure 129/77 135/75 Pulse Oximetry 97 Oxygen Delivery Method 04/20/23 23:50 04/20/23 23:50 04/20/23 23:55 Temperature 99.5 F Pulse Rate 72 75 Respiratory Rate 19 14 Blood Pressure 135/75 129/67 Pulse Oximetry 98 Oxygen Delivery Method 04/20/23 23:55 04/20/23 23:55 04/21/23 00:00 Temperature 99.2 F Pulse Rate 75 66 Respiratory Rate 22 18 Blood Pressure 129/67 121/66 Pulse Oximetry 98 Oxygen Delivery Method 04/21/23 00:00 04/21/23 00:00 04/21/23 00:15 Temperature Pulse Rate 67 68 Respiratory Rate 17 20 Blood Pressure 121/66 Pulse Oximetry 97 97 Oxygen Delivery Method 04/21/23 00:15 04/21/23 00:30 04/21/23 00:30 Temperature 99.3 F Pulse Rate 67 Respiratory Rate 14 Blood Pressure 137/70 127/69 Pulse Oximetry 98 Oxygen Delivery Method 04/21/23 01:00 04/21/23 01:00 04/21/23 01:30 Temperature 99.5 F 99.5 F Pulse Rate 63 Respiratory Rate 20 Blood Pressure 124/75 Pulse Oximetry 97 Oxygen Delivery Method 04/21/23 01:30 04/21/23 01:30 04/21/23 02:00 Temperature Pulse Rate 67 64 Respiratory Rate 22 21 Blood Pressure 135/70 Pulse Oximetry 96 98 Oxygen Delivery Method 04/21/23 02:00 04/21/23 02:25 04/21/23 02:25 Temperature 99.4 F Pulse Rate 66 Respiratory Rate 15 Blood Pressure 133/79 141/86 H Pulse Oximetry 100 Oxygen Delivery Method 04/21/23 02:30 04/21/23 02:30 Temperature Pulse Rate 64 Respiratory Rate 20 Blood Pressure 140/91 H Pulse Oximetry 100 Oxygen Delivery Method Medical Decision Making Lab Data 04/21/23 02:29 04/20/23 19:20 Labs: Lab Results 04/20/23 04/20/23 04/21/23 Range/Units 19:20 20:34 02:29 WBC 3.9 L (4.5-11.0) X10^3/uL RBC 3.18 L (4.0-5.2) X10^6/uL Hgb 5.3 L* 7.2 L (12.0-16.0) g/dL Hct 18.1 L* 23.5 L (36-46) % MCV 57.1 L (80-100) fL MCH 16.7 L (26-34) PG MCHC 29.1 L (30-36) % RDW 20.7 H (11.6-14.8) % Plt Count 327 (150-400) X10^3/uL Neut % (Auto) 53.2 (50-75) % Lymph % (Auto) 36.1 (25-40) % [place] % (Auto) 9.2 (3-14) % Eos % (Auto) 1.0 L (2-4) % Baso % (Auto) 0.5 (0-2) % Neut # (Auto) 2100 (8003-1658) /uL Lymph # (Auto) 1400 (5928-3707) /uL [place] # (Auto) 400 (0-900) /uL Eos # (Auto) 0 (0-450) /uL Baso # (Auto) 0 (0-100) /uL RBC Morphology See below Hypochromasia 2+ H Anisocytosis 3+ H Microcytosis 3+ H Target Cells 1+ H Tear Drop Cells 1+ H Ovalocytes 1+ H Acanthocytes (Spur) 1+ H Schistocytes 1+ H PT 12.7 (10.1-12.7) SECONDS INR 1.1 (0.9-1.3) Sodium 138 (137-145) mmol/L Potassium 3.5 (3.4-5.1) mmol/L Chloride 105 (98-107) mmol/L Carbon Dioxide 24 (22-32) mmol/L BUN 11 (7-17) mg/dL Creatinine 0.55 (0.52-1.04) mg/dL Estimated GFR > 60 (>60) mL/min BUN/Creatinine Ratio 20.0 (6-22) Glucose 91 (70-100) mg/dL Calcium 9.0 (8.4-10.2) mg/dL Magnesium 2.0 (1.6-2.3) mg/dL Total Bilirubin 0.2 (0.2-1.3) mg/dL AST 20 (14-36) IU/L ALT 12 (<35) IU/L Alkaline Phosphatase 49 (38-126) U/L Total Protein 7.2 (6.3-8.2) g/dL Albumin 4.5 (3.5-5.0) g/dL Globulin 2.7 (1.7-4.1) g/dL Albumin/Globulin Ratio 1.7 (1.0-2.8) Urine Color Yellow Urine Appearance Clear Urine pH 5.5 (4.5-8.0) Ur Specific [place] <=1.005 (1.000-1.035) Urine Protein Negative (Negative) Urine Glucose (UA) Negative (Negative) g/dL Urine Ketones Negative (NEGATIVE) Urine Occult Blood Trace-intact (Negative) Urine Nitrate Negative (Negative) Urine Bilirubin Negative (NEGATIVE) Urine Urobilinogen 0.2 (0.2) E.U./dL Ur Leukocyte Esterase Negative (NEGATIVE) Urine RBC 0-1/hpf D (0-5/HPF) Urine WBC None seen (0-5/HPF) Ur Squamous Epith Cells 0-1 /hpf (0-5/HPF) Urine Bacteria Occasional (0-1) (None) Ur Culture Indicated? Cult not indicated Blood Type O Positive Antibody Screen Negative Crossmatch See Detail Urine Dip Bedside Urine Glucose Negative Bedside Urine Bilirubin - Negative Bedside Urine Ketone - Negative Urine Specific [place] 1.005 Bedside Urine Occult Blood +/- Bedside Urine pH 6.0 Bedside Urine Protein - Negative Bedside Urine Urobilinogen - Negative Bedside Urine Nitrite - Negative Bedside Urine Leukocytes - Negative Esterase Point of care testing: Urine Dip Bedside Urine Glucose Negative Bedside Urine Bilirubin - Negative Bedside Urine Ketone - Negative Urine Specific [place] 1.005 Bedside Urine Occult Blood +/- Bedside Urine pH 6.0 Bedside Urine Protein - Negative Bedside Urine Urobilinogen - Negative Bedside Urine Nitrite - Negative Bedside Urine Leukocytes - Negative Esterase [facility] Medical decision making narrative: [ [age]] year old patient presents with symptomatic anemia Multiple etiologies for patient's symptoms considered including, but not limited to: [ anemia related to blood loss from heavy menses versus iron deficiency vs. other Prior Charts reviewed in our EMR Primary Historian: patient Labs reviewed and interpreted by myself: no leukocytosis or left shift, hemoglobin 5.3, hematocrit 18.1, MCV 57, INR 1.1, complete metabolic profile without any significant abnormalities Imaging reviewed: pelvic ultrasound notes at least 2 uterine fibroids, CT shows no significant abnormality, specifically no evidence of internal bleeding patient presents for evaluation of near syncopal episode and found to be profoundly anemic. She denies any obvious bleeding other than a very heavy menstrual cycle lasting upwards of a week. She takes no blood thinners. There is no evidence of internal bleeding on imaging. She is transfused 2 units, has symptomatic improvement and repeat blood tests show she is above the transfusion threshold. She remains hemodynamically stable, at this point there is no indication for hospitalization and she is appropriate for discharge, she is instructed to follow closely with her primary care provider and is given contact information for Dr. Kennedy as it seems likely her frequent heavy menstrual cycles may be the primary contributing factor Patient's symptoms improved over duration of stay with above-stated therapies. Findings and discharge diagnosis discussed with patient/family followed by verbalization of understanding Return precautions discussed with patient/family whom verbalize understanding of diagnosis and plan Discharge Plan Departure Patient Disposition: Home Clinical Impression: Anemia, Fibroid, uterine Instructions: Anemia, DI for Uterine Fibroids Activity Restrictions/Additional Instructions: *You have been diagnosed with [ anemia. It seems most likely related to heavy menstrual bleeding, and imaging shows evidence of fibroids which can contribute. ] *What to do: *Please continue to take your regular medications as directed. [ ] New medication prescriptions sent to your pharmacy: [ ] [ ] New medication written as a paper prescription [ ] No new medications given *Please follow up with Dr. Kennedy (product evangelist). Please Call the office later today, let them know you were seen in the emergency department and we would like you seen in follow-up. I will electronically transmitted a copy of today's note *If you do not have a primary care provider please contact the [facility] Resource line at [phone]. They will ask some questions about your medical history and help get you set up with a doctor in the community. *Return to Emergency Department if you should have any new, worsening or concerning symptoms, such as [fever greater than 101 F, shaking chills, worsening pain, persistent vomiting or other bothersome symptoms] Prescriptions: No Action levothyroxine 125 mcg tablet 125 mcg PO DAILY carvedilol 6.25 mg tablet See Rx Instructions .ROUTE .COMPLEX Qty: 180 0RF Dose Instruction: TAKE ONE TABLET BY MOUTH TWICE DAILY Rx Instructions: TAKE ONE TABLET BY MOUTH TWICE DAILY ketoconazole 2 % cream 1 applic topical BID Qty: 60 0RF Rx Instructions: Apply to affected area twice daily for 2-4 weeks cholecalciferol (vitamin D3) [Vitamin D3] 25 mcg (1,000 unit) Capsule 25 mcg PO DAILY Probiotic 10 billion cell Capsule 10,000 mmu cells PO DAILY Zyrtec 10 mg Capsule 10 mg PO DAILY Referrals: Suri Kennedy MD [Physician] - Honey Allen MD [Primary Care Provider] - Stand Alone Forms: Patient Portal/API
[2023-04-20 19:38] LABS: Basophils Absolute Auto 0 /uL (0-100); Basophils Percent Auto 0.5 % (0-2); Eosinophils Absolute Auto 0 /uL (0-450); Lymphocytes Absolute Auto 1400 /uL (1100-4500); Lymphocytes Percent Auto 36.1 % (25-40); Mean Corpuscular Volume 57.1 fL (80-100); Monocytes Absolute Auto 400 /uL (0-900); Monocytes Percent Auto 9.2 % (3-14); Neutrophils Absolute Auto 2100 /uL (1500-7000); Neutrophils Percent Auto 53.2 % (50-75); Red Blood Cell Count 3.18 X10^6/uL (4.0-5.2); White Blood Cell Count 3.9 X10^3/uL (4.5-11.0)
[2023-04-20 19:49] LABS: Mean Corpuscular HGB Conc 29.1 % (30-36); Mean Corpuscular Hemoglobin 16.7 PG (26-34)
[2023-04-20 19:50] LABS: Add Manual Diff / Slide Review SLIDE REVIEW; Hematocrit 18.1 % (36-46); Hemoglobin 5.3 g/dL (12.0-16.0); Platelet Count 327 X10^3/uL (150-400); Red Cell Distribution Width 20.7 % (11.6-14.8)
[2023-04-20 19:59] LABS: INR 1.1 (0.9-1.3); Prothrombin Time 12.7 SECONDS (10.1-12.7)
[2023-04-20 20:04] LABS: Alanine Aminotransferase 12 IU/L (<35); Albumin 4.5 g/dL (3.5-5.0); Albumin Globulin Ratio 1.7 (1.0-2.8); Alkaline Phosphatase 49 U/L (38-126); Aspartate Aminotransferase 20 IU/L (14-36); Bilirubin Total 0.2 mg/dL (0.2-1.3); Blood Urea Nitrogen 11 mg/dL (7-17); Carbon Dioxide 24 mmol/L (22-32); Chloride 105 mmol/L (98-107); Estimated Glomerular Filt Rate > 60 mL/min (>60); Globulin 2.7 g/dL (1.7-4.1); Glucose 91 mg/dL (70-100); HEMOLYSIS < 15 (0-50); Potassium 3.5 mmol/L (3.4-5.1); Sodium 138 mmol/L (137-145); Total Protein 7.2 g/dL (6.3-8.2)
[2023-04-20 20:23] LABS: Acanthocytes 1+; Hypochromasia 2+; Microcytosis 3+; Ovalocytes 1+; Schistocytes 1+; Target Cells 1+; Tear Drop Cells 1+
[2023-04-20 20:25] LABS: Anisocytosis 3+
[2023-04-20 20:49] LABS: Appearance Urine UA CLEAR; Bilirubin Urine UA NEGATIVE (NEGATIVE); Color Urine UA YELLOW; Glucose Urine UA NEGATIVE (Negative); Ketones Urine UA NEGATIVE (NEGATIVE); Leukocyte Esterase Urine UA NEGATIVE (NEGATIVE); Nitrite Urine UA NEGATIVE (Negative); Occult Blood Urine UA TRACE-INTACT (Negative); Protein Urine UA NEGATIVE (Negative); Specific Gravity Urine UA <=1.005 (1.000-1.035); Urobilinogen Urine UA 0.2 E.U./dL (0.2)
[2023-04-20 20:54] LABS: pH Urine UA 5.5 (4.5-8.0)
[2023-04-20 20:56] LABS: Bacteria Urine Occasional (0-1); Culture Indicated Urine Cult Not Indicated; RBC Urine 0-1/HPF (0-5/HPF); Squamous Epithelial Cell Urine 0-1 /HPF (0-5/HPF); WBC Urine None Seen (0-5/HPF)
--- NOTE | 2023-04-20 21:18 | DI.US.S_ITS ---
PROCEDURE: US PELVIC COMPLETE INDICATIONS: HEAVY BLEEDING REQUIRING TRANSFUSION TECHNIQUE: Real-time scanning was performed of the pelvic organs, with image documentation. Additional endovaginal scanning was necessary due to incomplete visualization of the adnexal and endometrial structures by transabdominal scanning. COMPARISON: [facility], US, PELVIC COMPLETE, 03/14/2016, 9:23. [facility], CT, CT ABDOMEN PELVIS W CON, 04/20/2023, 22:11. FINDINGS: Uterus: Uterus is retroverted and measures 9.8 x 6.6 x 8.4 cm. The myometrium is heterogeneous. The endometrium is not well visualized due to presence of fibroids 2 fibroids visualized Anterior midline submucosal fibroid 3.2 x 1.7 x 2.8 cm Anterior fundal submucosal fibroid 4.3 x 2.5 x 3.4 cm Ovaries: The right ovary measures 3.9 x 2.4 x 3.3 cm, with a calculated ovarian volume of 16 cc. A structure annotated as the left ovary measures 6.2 x 4.7 x 6.5 cm, volume 100 cc. A hypoechoic structure within this finding measures 4.9 x 4.6 x 4.1 cm Other: No pathologic free abdominal or pelvic fluid. IMPRESSION: Limited exam due to patient body habitus. At least 2 uterine fibroids are present, both appear submucosal. Endometrium is not well visualized due to presence of uterine fibroids. Other fibroids could be present and not identified sonographically. A structure annotated as the left ovary measures up to 6.5 cm. Unclear if this finding represents the left ovary or another structure such as bowel or pedunculated uterine fibroid. Appearance of the ovaries appears discordant with same day CT abdomen pelvis, where the left ovary appears nonenlarged and a normal right ovary is not identified, possibly enlarged versus presence of a pedunculated uterine fibroid. Consider nonemergent pelvic MRI for further evaluation and or short interval follow-up pelvic ultrasound. We strive to produce accurate, complete, and clear reports of imaging services. To assist us in improving patient care, this report was composed using standard report templates and voice recognition software. Therefore, it may contain abnormal punctuation, insertions and/or omissions. Occasional wrong-word or sound-alike substitutions may occur. Though we review the report and make efforts to correct it, we do recommend that the report be read carefully in proper context to recognize any text inaccuracies. Dictated by: Crow Randle M.D. on 04/20/2023 at 23:35 Approved by: Crow Randle M.D. on 04/20/2023 at 23:41
--- NOTE | 2023-04-20 22:08 | DI.CT.S_ITS ---
PROCEDURE: CT ABDOMEN PELVIS W CON INDICATIONS: heavy vaginal bleeding, requiring transfusion TECHNIQUE: After the administration of intravenous contrast, axial sections acquired from the lung bases to the pubic symphysis. Coronal and sagittal reformats were performed. For radiation dose reduction, the following was used: automated exposure control, adjustment of mA and/or kV according to patient size. COMPARISON: [facility], , US PELVIC COMPLETE, 04/20/2023, 21:40. FINDINGS: Lung bases: No pleural effusion ABDOMEN: Liver: A few scattered small hypodensities are present, too small to characterize Gallbladder: Unremarkable. Biliary ducts: Unremarkable. Pancreas: Unremarkable. Spleen: Unremarkable. Adrenal Glands: Unremarkable. Kidneys and Ureters: No hydronephrosis Stomach and Bowel: No bowel obstruction Peritoneum: Trace nonspecific pelvic free fluid. No free air. Abdominal Nodes: No retroperitoneal or mesenteric adenopathy by size criteria. Vessels: Aorta and inferior vena cava are normal in size. PELVIS: Pelvic Organs: The uterus is heterogeneous in appearance. Uterus and ovaries are not well evaluated by CT. However, findings on this exam appear discordant from the same day pelvic ultrasound. The left ovary appears non enlarged and a normal right ovary is not identified. A heterogeneous cystic and solid appearing structure is present adjacent to the uterine fundus, which may represent an abnormal right ovary or exophytic degenerated uterine fibroid. Bladder: Unremarkable. Pelvic Nodes: No enlarged lymph nodes. Bones: Multilevel degenerative change of the visualized spine. IMPRESSION: Uterus and ovaries are not well evaluated by CT. However, findings on this exam appear discordant from the same day pelvic ultrasound. The left ovary appears non enlarged and a normal right ovary is not identified. A heterogeneous cystic and solid appearing structure is present adjacent to the uterine fundus, which may represent an abnormal right ovary or exophytic degenerated uterine fibroid. Further evaluation /follow-up is recommended, consider nonemergent pelvic MRI and/or short interval follow-up pelvic ultrasound. Gynecology consultation may also be helpful to direct further management. Dictated by: Crow Randle M.D. on 04/21/2023 at 0:54 Approved by: Crow Randle M.D. on 04/21/2023 at 1:05
[2023-04-21] VITALS (9 sets, daily range): BP systolic 121–141; BP diastolic 66–91; PULSE 63–69; RESP 14–22; TEMP 37.3–37.5; O2SAT 96–100
--- NOTE | 2023-04-21 02:30 | PC.NURSE ---
Tolerated 2 units of PRBC with no transfusion reactions. Pt reports feeling much better at this time. Repeat H/H sent to lab. Pt tolerating PO fluids.
[2023-04-21 02:44] LABS: Hemoglobin 7.2 g/dL (12.0-16.0)
[2023-04-21 02:45] LABS: Hematocrit 23.5 % (36-46)
== END 2023-04-21 03:09 | disposition home or self-care (01) ==
PROVIDERS: Emergency Provider Emergency Medicine; Family Provider Family Medicine; PCP Family Medicine; Referring Provider Family Medicine
DX: D64.9 Anemia, unspecified (principal); D25.0 Submucous leiomyoma of uterus
CPT/HCPCS: 36415; 36430; 74177; 76830; 76856; 80053; 81001; 81003; 83735; 85014; 85018; 85025; 85610; 86850; 86900; 86901; 93005; 93010; 99285; P9016; Q9967

== ENCOUNTER 2023-05-02 06:42 | Day surgery (SDC) | payer BC, SELFPAY ==
[2021-02-10 14:38] VITALS: BMI 34.2
[2023-04-26 14:31] VITALS: BMI 25.2
[2023-05-02] VITALS (16 sets, daily range): BP systolic 83–150; BP diastolic 49–88; PULSE 52–75; RESP 8–17; TEMP 36.4–37.2; O2SAT 93–100; BMI 24.3
--- NOTE | 2023-05-02 | PATH_ITS ---
[facility] Accession Number: [id number] No. of containers..01 Tissue . 01 Material submitted: . uterus - UTERUS, BILATERAL FALLOPIAN TUBES . 01 Diagnosis: Uterus, Bilateral Fallopian Tubes; Supracervical Hysterectomy And Bilateral Salpingectomies: Endometrium: Benign, early secretory-phase endometrium without significant cytologic atypia, hyperplasia, and malignancy. Possible adenomyosis, on a freight representative section. Benign leiomyomas with focal degenerative changes, without significant cytologic atypia, increased mitotic activity, necrosis, or malignancy. Fallopian Tubes: Benign bilateral fallopian tubes and paratubal cysts. [facility] 05/09/2023 1535 Local . 01 Electronically signed: . Rajendra Dumont MD, Pathologist NPI- [id number] . 01 Gross description: . The specimen is received in formalin labeled with the patient's name, , and uterus, bilateral fallopian tubes, consists of a fragmented uterus (355 grams and aggregating to 18.3 x 16.7 x 6.1 cm) with two unoriented, fimbriated fallopian tubes (4.9 x 0.9 cm and 5.2 x 0.6 cm, respectively) with no cervix or additional adnexa identified. The serosa is domingo and smooth with no evidence of hemorrhage or adhesion. The endometrium is brown, velvety, and averages 0.3 cm thick. The myometrium is domingo and trabecular with multiple disrupted white whorled areas aggregating to 9.3 x 7.5 x 4.1 cm. No areas of hemorrhage or necrosis are identified. . Both fallopian tubes have domingo, smooth serosa with multiple cystic structures measuring up to 0.5 cm in greatest dimension filled with clear serous fluid. Sectioning reveals unremarkable stellate lumens. . Belt Loop Cutter sections are submitted as follows: A1: Endometrium. A2: Serosa. A3-A4: White whorled area. A5: Longer fallopian tube to include one-half of bisected fimbria and cross sections. A6: [place] fallopian tube to include one-half of bisected fimbria and cross sections. ([id number]) /MRV 05/04/2023 1225 Local . 01 Pathologist provided ICD-10: D25.9, Z87.42, D64.9, N83.209 . 01 CPT . 327293 Specimen Comment: A courtesy copy of this report has been sent to [phone] Performed at: 01 [facility] [address] [place] [address], [place], [place] [id number] MD Anand Silvestre MD Phone: [phone]
--- NOTE | 2023-05-02 07:36 | PM.PREOP ---
Pre-operative Note Interval Note History & Physical reviewed/Exam performed by Physician: Yes Changes to H&P: No H&P completed within 30 days and has changed as indicated here:: 04/26/23
[2023-05-02] MEDS: LACTATED RINGERS 1,000 ML 100 ML IV ×3 (07:41→23:22)
[2023-05-02] MEDS: ACETAMINOPHEN 325 MG TABLET 975 MG PO (07:42)
[2023-05-02 07:54] LABS: Add Manual Diff / Slide Review NO; Basophils Absolute Auto 0 /uL (0-100); Basophils Percent Auto 0.4 % (0-2); Eosinophils Absolute Auto 0 /uL (0-450); Eosinophils Percent Auto 1.3 % (2-4); Hematocrit 26.1 % (36-46); Hemoglobin 7.9 g/dL (12.0-16.0); Lymphocytes Absolute Auto 1100 /uL (1100-4500); Lymphocytes Percent Auto 29.5 % (25-40); Mean Corpuscular HGB Conc 30.4 % (30-36); Mean Corpuscular Hemoglobin 19.8 PG (26-34); Mean Corpuscular Volume 65.1 fL (80-100); Monocytes Absolute Auto 300 /uL (0-900); Monocytes Percent Auto 8.6 % (3-14); Neutrophils Absolute Auto 2200 /uL (1500-7000); Neutrophils Percent Auto 60.2 % (50-75); Platelet Count 236 X10^3/uL (150-400); Red Cell Distribution Width 30.2 % (11.6-14.8); White Blood Cell Count 3.6 X10^3/uL (4.5-11.0)
[2023-05-02] MEDS: CEFAZOLIN 2 GM/100 ML PREMIX 100 ML IV (07:57)
[2023-05-02 08:20] LABS: Anisocytosis 2+; Hypochromasia 2+; Microcytosis 3+; Ovalocytes 1+; Rouleaux 1+; Target Cells 1+; Tear Drop Cells 1+
[2023-05-02 08:23] LABS: Acanthocytes 1+
--- NOTE | 2023-05-02 08:31 | SUR.OPER ---
Lithotomy on padded OR bed. [place] Pad Positioner under torso. Head on pillow, arms padded and tucked at sides. Legs secured in padded yellow fins stirrups.
[2023-05-02] MEDS: BUPIVACAINE 0.5% W/ EPI (PF) 30 ML VIAL INJ (08:39)
[2023-05-02] MEDS: ROPIVACAINE 0.2% PF 2 MG/ML 10ML AMP 20 ML INJ (08:39)
[2023-05-02] MEDS: KETOROLAC 30 MG/ML VIAL IV ×3 (10:10→23:02)
[2023-05-02] MEDS: LACTATED RINGERS 1,000 ML 42 ML IV (10:12)
[2023-05-02 10:16] LABS: Hematocrit 24.6 % (36-46); Hemoglobin 7.3 g/dL (12.0-16.0); Mean Corpuscular HGB Conc 29.8 % (30-36); Mean Corpuscular Hemoglobin 19.8 PG (26-34); Mean Corpuscular Volume 66.3 fL (80-100); Platelet Count 215 X10^3/uL (150-400); Red Blood Cell Count 3.71 X10^6/uL (4.0-5.2); Red Cell Distribution Width 29.8 % (11.6-14.8)
[2023-05-02] MEDS: OXYCODONE IR 5 MG TABLET PO ×3 (10:23→16:48)
--- NOTE | 2023-05-02 10:36 | SUR.PHASEI ---
Report called to FELICIANO Dumont.
--- NOTE | 2023-05-02 10:39 | SUR.PHASEI ---
Patient care transferred to [facility]. Report given.
--- NOTE | 2023-05-02 11:05 | SUR.PHASEI ---
Patient transferred to room 223 by Matthew WIGGINS in bed with belongings. Alert, oriented and tolerating apple sauce.
--- NOTE | 2023-05-02 11:48 | PC.NURSE ---
1100: new admit from pacu. dx: POD 0 for vaginal hysterectomy & tubal removal. arrived to floor awake, supine w/ HOB up. tolerating ice pack to abd. 4 lap sites are CDI. LR at 100/hour. SCD's applied. nena is in the room. white board updated w/ his number. oriented to room & call light. bed alarm is on.
[2023-05-02] MEDS: ONDANSETRON 4 MG/2 ML INJ IV (11:58)
[2023-05-02] MEDS: ACETAMINOPHEN 325 MG TABLET 650 MG PO ×3 (11:58→23:03)
[2023-05-02] MEDS: DOCUSATE 100 MG CAPSULE 200 MG PO (20:45)
--- NOTE | 2023-05-02 22:07 | PM.GYNOP.1 ---
Operative Date/Time/Diagnoses Date of procedure: 05/02/23 Time of procedure: 09:40 Pre-op diagnosis: Fibroid uterus Menorrhagia Severe anemia Post-op diagnosis: same Procedure & Clinicians Procedure: Procedures Operation Date: 05/02/23 07:45 Actual Procedure Side Surgeon p Laparoscopic Supracervical Hysterectomy with bilateral salpingectomy Suri Kennedy MD Indications: 43 year old with menorrhagia, anemia and an enlarged fibroid uterus Surgeon: Suri Kennedy Plastic Technician: Hermann Braden Anesthesia Type: General and Local Operative Notes Findings: 12 wk size multifibroid uterus Normal tubes Normal appendix, liver and gallbladder Closure Type: primary Specimen(s): left tube, right tube and uterus Applied: catheter (removed at the end of the case) Estimated blood loss (mL): 50 Blood products transfused: none Procedure in detail: The patient was taken to the operating room where she was placed in the dorsal supine position. After adequate general endotracheal anesthesia was achieved, she was placed in the dorsal lithotomy position, and prepped and draped in the usual sterile fashion. A timeout was performed. A bivalve speculum was placed into the vagina and the anterior lip of the cervix grasped with a single-tooth tenaculum. The cervical os was sequentially dilated until the ZUMI uterine manipulator could pass easily into the endometrial cavity. The single-tooth tenaculum was removed from the anterior lip of the cervix, and the bivalve speculum was removed from the vagina. Attention was then turned to the abdomen where 6 mL of half percent Marcaine with epinephrine were injected in the umbilical fold. A 5 mm incision was made. The Verees needle was placed into the peritoneal cavity, and its placement confirmed by aspiration and drop test. The abdomen was insufflated with 3.2 L of CO2 gas. The Verees needle was removed. A 5 mm trocar was placed without difficulty. 2 other incisions were made 4 cm lateral to the umbilicus after 5 mL of half percent Marcaine with epinephrine were injected. These were 5 mm incisions. Two 5 mm trocars were placed under direct visualization. The right tube was grasped with an atraumatic grasper. Using the Powerseal, the mesosalpinx was cauterized and cut all the way down to the cornua of the uterus. The cornua of the uterus was then grasped with an atraumatic grasper. The utero-ovarian ligaments were cauterized and cut. The round ligament and broad ligament was cauterized and cut with the Powerseal. Hemostasis was achieved. The bladder flap was created using the Powerseal with cautery and cut care home across. The uterine arteries on the right side were extensively cauterized with the Powerseal. All of this was repeated on the left side. The remainder of the bladder flap was created using the Powerseal. The bladder was taken down off the lower uterine segment and cervix. Using the L[place]oop, the cervix was amputated from the uterus 2 cm above the uterosacral ligaments, after the ZUMI uterine manipulator was removed from the uterus. There was a small amount of bleeding noted from the right edge of the cervix, and this was cauterized for hemostasis. A sponge stick was placed into the vagina. 6 mL of half percent Marcaine with epinephrine were injected above the pubic symphysis. A 12 mm incision was made. A 12 mm trocar was placed under direct visualization. An Endobag was placed through the suprapubic trocar and the uterus and tubes were placed into the Endobag. The trocar was removed. The edges of the endobag were brought through the incision. An Lorenzo was placed into the endobag. The uterus and tubes were hand morcellated in approximately 20 pieces. The -Endobag and Lorenzo were removed from the peritoneal cavity. The fascia on the suprapubic incision was closed with 0-vicryl in a running fashion. The abdomen was reinsufflated with CO2 gas. The pelvis was copiously irrigated with warm normal saline. No bleeding was noted. The instruments were removed from the abdomen. The CO2 was allowed to escape. The subcutaneous tissue was closed with 3-0 vicryl in 2 simple interrupted stitches. All of the incisions were closed with 4-0 Biosyn in a subcuticular fashion. Steri strips and Allevyn dressings were placed. The moistened sponge stick was removed from the vagina. Sponge, lap, and instrument counts were correct x-2. The patient tolerated the procedure well, was taken to PACU in stable condition. Complications: none Post-operative Condition: stable Disposition: PACU Plan for aftercare: To Acute Care after recovery
[2023-05-03] MEDS: OXYCODONE IR 5 MG TABLET PO (02:14)
[2023-05-03] MEDS: OXYCODONE IR 5 MG TABLET 10 MG PO (03:56)
[2023-05-03] MEDS: KETOROLAC 30 MG/ML VIAL IV (04:01)
[2023-05-03] MEDS: LEVOTHYROXINE 125 MCG TABLET PO (06:31)
[2023-05-03 08:15] VITALS: BP 111/62; PULSE 61; RESP 16; TEMP 37.4; O2SAT 99
--- NOTE | 2023-05-03 09:33 | CM.DANOTE ---
Initial DCP Assessment Note Pt is a 43 yo female, resident of [place], now POD#1 from Laparoscopic Supracervical Hysterectomy with bilateral salpingectomy by Dr Kennedy PCP: Honey Allen Payer: [facility] Reviewed chart, patient discussed with FELICIANO Morrison. pt has planned for home and may be cleared for discharge later today depending on pain control and voiding. No barriers identified at this time to patient's safe discharge home w/family to assist; close outpatient f/u recommended. CM team will plan to follow closely in case any DC needs or concerns arise. 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 No Advance Directives on File No History Provided By Patient,Medical Record Prior Living Arrangements House Household Members spouse Type of transporation used prior to Drives own vehicle admit Independent with ADL's Yes Is patient alert and oriented? Yes Comment Home outpatient follow up Barriers to Discharge No Discharge Plan Home Transportation Arrangement Spouse Referrals Initiated None needed
[2023-05-03 09:53] LABS: Hematocrit 23.3 % (36-46); Hemoglobin 7.2 g/dL (12.0-16.0)
--- NOTE | 2023-05-03 11:02 | PC.NURSE ---
Discharge: Pt A&Ox4, agreeable to discharge. Education provided to pt on follow up appointments, new medication, stool softeners, paperwork signed. IV discontinued. Pt wheeled via WC to private vehicle by [facility] at approximately 1045.
--- NOTE | 2023-05-05 07:40 | PC.NURSE ---
Delayed entry: for patient care medication administration on 05/02/2023 @20:44:36 I withdrew a 5mg Oxycodone IR (percolone) tablet. I administered the medication for a pain; I forgot to hit the save button on the AUG and it timed out and I did not come back to the mobile computer that i was using. Another staff member began using the mobile computer.
== END 2023-05-03 10:45 | disposition home or self-care (01) ==
LOC: OR 06:44 → AC 06:46
PROVIDERS: Student in an Organized Health Care Education/Training Program; Family Provider Family Medicine; PCP Family Medicine; Referring Provider Obstetrics & Gynecology; Visit Provider Obstetrics & Gynecology
PROC: 0UT94ZL Resection of Uterus, Supracervical, Percutaneous Endoscopic Approach (ICD-10-PCS; CPT 58542; principal; 2023-05-02 07:45)
DX: N92.0 Excessive and frequent menstruation with regular cycle (principal); D64.9 Anemia, unspecified; D25.9 Leiomyoma of uterus, unspecified; N83.8 Other noninflammatory disorders of ovary, fallopian tube and broad ligament
CPT/HCPCS: 58542; 36415; 85014; 85018; 85025; 85027; J0330; J0690; J1100; J1170; J1885; J2405; J2704; J2795; J3010

== ENCOUNTER → 2023-06-07 15:51 | Outpatient (CLI) | payer BC, SELFPAY ==
[2023-05-02 11:00] VITALS: BMI 24.3
[2023-06-07 16:36] LABS: Basophils Absolute Auto 0 /uL (0-100); Basophils Percent Auto 0.2 % (0-2); Eosinophils Absolute Auto 100 /uL (0-450); Eosinophils Percent Auto 1.3 % (2-4); Hematocrit 35.4 % (36-46); Hemoglobin 11.6 g/dL (12.0-16.0); Lymphocytes Absolute Auto 1600 /uL (1100-4500); Lymphocytes Percent Auto 36.3 % (25-40); Mean Corpuscular HGB Conc 32.9 % (30-36); Mean Corpuscular Hemoglobin 25.1 PG (26-34); Mean Corpuscular Volume 76.4 fL (80-100); Monocytes Absolute Auto 300 /uL (0-900); Monocytes Percent Auto 7.6 % (3-14); Neutrophils Absolute Auto 2400 /uL (1500-7000); Neutrophils Percent Auto 54.6 % (50-75); Platelet Count 194 X10^3/uL (150-400); Red Blood Cell Count 4.63 X10^6/uL (4.0-5.2); Red Cell Distribution Width 32.8 % (11.6-14.8); White Blood Cell Count 4.5 X10^3/uL (4.5-11.0)
[2023-06-07 16:46] LABS: Add Manual Diff / Slide Review SLIDE REVIEW
[2023-06-07 16:57] LABS: Anisocytosis 2+
[2023-06-07 16:58] LABS: Acanthocytes 1+; Ovalocytes 1+; Schistocytes 1+; Tear Drop Cells 1+
[2023-06-07 17:00] LABS: Rouleaux 1+
[2023-06-07 17:15] LABS: Free T4, Direct Thyroxine 1.56 ng/dL (0.78-2.19)
[2023-06-07 17:28] LABS: Thyroid Stimulating Hormone 0.364 uIU/mL (0.47-4.68)
== END ==
PROVIDERS: Family Provider Family Medicine; PCP Family Medicine; Referring Provider Obstetrics & Gynecology; Visit Provider Obstetrics & Gynecology
DX: D64.9 Anemia, unspecified (principal); E03.9 Hypothyroidism, unspecified
CPT/HCPCS: 36415; 84439; 84443; 85025

== ENCOUNTER 2023-07-30 10:54 | Emergency (ER) | payer BC, SELFPAY ==
[2023-05-02 11:00] VITALS: BMI 24.3
[2023-07-30] VITALS (23 sets, daily range): BP systolic 133–197; BP diastolic 82–110; PULSE 56–68; RESP 14–27; TEMP 36.2; O2SAT 97–100; BMI 24.6
--- NOTE | 2023-07-30 11:05 | DI.RAD.S_ITS ---
PROCEDURE: XR CHEST 1V INDICATIONS: chest pain TECHNIQUE: One view of the chest was acquired. COMPARISON: [facility], CR, XR CHEST 1V, 11/04/2019, 21:51. FINDINGS: Surgical changes and devices: None. Lungs and pleura: Lungs are clear. No pleural effusions or pneumothorax. Mediastinum: Mediastinal contours appear normal. Heart size is normal. Bones and chest wall: No suspicious bony lesions. Overlying soft tissues appear unremarkable. IMPRESSION: No acute cardiopulmonary abnormality is seen. Dictated by: Julio Weldon M.D. on 07/30/2023 at 10:32 Approved by: Julio Weldon M.D. on 07/30/2023 at 10:33
[2023-07-30] MEDS: ASPIRIN 81 MG CHEW TAB 324 MG PO (11:15)
[2023-07-30 11:25] LABS: Basophils Absolute Auto 0 /uL (0-100); Basophils Percent Auto 0.1 % (0-2); Eosinophils Absolute Auto 100 /uL (0-450); Eosinophils Percent Auto 1.5 % (2-4); Hematocrit 41.6 % (36-46); Hemoglobin 14.2 g/dL (12.0-16.0); Lymphocytes Absolute Auto 1600 /uL (1100-4500); Lymphocytes Percent Auto 25.6 % (25-40); Mean Corpuscular HGB Conc 34.2 % (30-36); Mean Corpuscular Hemoglobin 29.3 PG (26-34); Mean Corpuscular Volume 85.6 fL (80-100); Monocytes Absolute Auto 500 /uL (0-900); Monocytes Percent Auto 7.6 % (3-14); Neutrophils Absolute Auto 4000 /uL (1500-7000); Neutrophils Percent Auto 65.2 % (50-75); Platelet Count 210 X10^3/uL (150-400); Red Blood Cell Count 4.86 X10^6/uL (4.0-5.2); White Blood Cell Count 6.1 X10^3/uL (4.5-11.0)
[2023-07-30] MEDS: NITROGLYCERIN 0.4 MG SL TAB SL (11:29)
[2023-07-30 11:30] LABS: Prothrombin Time 11.3 SECONDS (9.4-12.5)
[2023-07-30 11:31] LABS: Add Manual Diff / Slide Review SLIDE REVIEW
[2023-07-30 11:33] LABS: PTT Partial Thromboplastin Tim 31 SECONDS (25.1-36.5)
--- NOTE | 2023-07-30 11:50 | PC.NURSE ---
Pt reports transient chest paiin over the past 5 days, which usually presents in the evenings. Pt denies noting any physically stressful events at these times. She has had nausea/dry heaving but currently denies nausea. Cap refill 3 seconds, pt states I usually feel cold. Pt reported having no chest pain 20 minutes ago, but not has 2/10 right sided chest pain. Provider notified.
--- NOTE | 2023-07-30 11:52 | ED_ITS ---
HPI - Chest Pain General Chief Complaint: Chest Pain Stated Complaint: CHEST PAIN, DIZZINESS Time Seen by Provider: 07/30/23 11:20 Source: patient Mode of arrival: Ambulatory Limitations: no limitations History of Present Illness HPI narrative: Patient is a 43-year-old female. History of hypothyroidism and hypertension who is here for evaluation of chest discomfort. She describes the discomfort as left-sided chest pressure. It has been intermittent. Been going on for the past couple days. When it comes on lasts for a minute and then resolves. Does not seem to be associated with any other symptoms. No shortness of breath. No abdominal pain. No fevers. Related Data Home Medications Medication Instructions Recorded Confirmed cetirizine 10 mg capsule (Zyrtec) 10 mg PO DAILY allergies 10/31/19 07/30/23 levothyroxine 125 mcg tablet 125 mcg PO DAILY 10/18/22 07/30/23 Lactobacillus acidophilus 10 10,000 mmu cells PO DAILY 12/22/22 07/30/23 billion cell capsule (Probiotic) cholecalciferol (vitamin D3) 25 25 mcg PO DAILY 12/22/22 07/30/23 mcg (1,000 unit) capsule (Vitamin D3) nebivolol 5 mg tablet 5 mg PO QPM 07/30/23 07/30/23 Allergies Allergy/AdvReac Type Severity Reaction Status Date / Time No Known Drug Allergies Allergy Verified 06/13/23 14:59 Review of Systems Constitutional Constitutional: Reports system reviewed and no additional complaints, except as documented Cardiovascular Cardiovascular: Reports system reviewed and no additional complaints, except as documented Respiratory Respiratory: Reports system reviewed and no additional complaints, except as documented Gastrointestinal Gastrointestinal: Reports system reviewed and no additional complaints, except as documented Genitourinary Genitourinary: Reports system reviewed and no additional complaints, except as documented Integumentary/Breasts Skin/Breast: Reports system reviewed and no additional complaints, except as documented Neurologic Neurologic: Reports system reviewed and no additional complaints, except as documented Hematologic/Lymphatic On Anticoagulants: No Patient History Medical History PAC (premature atrial contraction) Thyroid nodule Anxiety Surgical History Hx of colonoscopy (12/22/22) H/O thyroidectomy (04/2020) Status post knee surgery History of third molar tooth extraction Family History Father Age: 77 Prostate cancer Mother Age: 67 Hypertension Sister Thyroid disease Grandmother Stroke Social History household members: spouse Smoking Status: Never smoker alcohol intake: current Smoking Status: Never smoker alcohol intake frequency: holidays/special occasions only Substance Use Type: does not use Exam Initial Vital Signs Initial Vital Signs: Vital Signs Temperature 97.2 F L 07/30/23 11:00 Pulse Rate 61 07/30/23 11:00 Respiratory Rate 14 07/30/23 11:00 Blood Pressure 197/110 H 07/30/23 11:00 Pulse Oximetry 99 07/30/23 11:00 Oxygen Delivery Method Room Air 07/30/23 11:00 HENMT Head: normal to inspection and normocephalic Resp Effort & Inspection: normal respiratory effort Auscultation: clear to auscultation bilaterally Cardio Rate: regular rate Rhythm: regular rhythm GI Inspection: normal to inspection and non-distended Skin General: no rashes or lesions noted Neuro General: patient alert, patient awake and moves all extremities Extrem General: No edema Scores HEART Score Heart Score history: Slightly Suspicious Heart Score EKG: Normal Heart Score Age: 45-64 years old Heart Score risk factors: 1-2 risk factors Heart Score troponin: < or = to normal limit Heart Score Total: 2 Course Orders Ordered: ED Orders 07/30/23 11:05 XR chest 1V Stat EKG-12 Lead Stat 07/30/23 11:06 Complete Blood Count AUTO DIFF Stat Comprehensive Metabolic Panel Stat Lipase Stat Magnesium Stat PTT Partial Thromboplastin Humberto Stat Prothrombin Time INR Stat Troponin & CK Cardiac Panel Stat 07/30/23 13:06 Troponin & CK Cardiac Panel Stat Discontinued Medications Acetaminophen (Acetaminophen 325 Mg Tablet) 650 mg PO NOW ONE Stop: 07/30/23 11:53 Last Admin: 07/30/23 11:54 Dose: 650 mg Documented By: SPF Aspirin (Aspirin 81 Mg Chew Tab) 324 mg PO NOW ONE Stop: 07/30/23 11:06 Last Admin: 07/30/23 11:15 Dose: 324 mg Documented By: KLS Nitroglycerin (Nitroglycerin 0.4 Mg Sl Tab) 0.4 mg SL [id number] PRN PRN Reason: Chest Pain Last Admin: 07/30/23 11:29 Dose: 0.4 mg Documented By: CARON Vital Signs Vital signs: Vital Signs - 8 hr 07/30/23 11:15 07/30/23 11:15 07/30/23 11:27 Pulse Rate 68 63 Respiratory Rate 25 H 22 Blood Pressure 156/89 H Pulse Oximetry 100 100 Oxygen Delivery Method Room Air 07/30/23 11:27 07/30/23 11:29 07/30/23 11:30 Pulse Rate 64 Respiratory Rate Blood Pressure 155/96 H 155/96 H 149/92 H Pulse Oximetry Oxygen Delivery Method 07/30/23 11:30 07/30/23 11:33 07/30/23 11:33 Pulse Rate 66 63 Respiratory Rate 19 16 Blood Pressure 135/83 Pulse Oximetry 99 98 Oxygen Delivery Method Room Air 07/30/23 11:36 07/30/23 11:36 07/30/23 11:39 Pulse Rate 61 59 L Respiratory Rate 18 14 Blood Pressure 133/86 Pulse Oximetry 99 99 Oxygen Delivery Method 07/30/23 11:39 07/30/23 11:42 07/30/23 11:42 Pulse Rate 61 Respiratory Rate 20 Blood Pressure 140/87 144/102 H Pulse Oximetry 98 Oxygen Delivery Method Room Air 07/30/23 11:45 07/30/23 11:45 07/30/23 12:00 Pulse Rate 63 61 Respiratory Rate 16 18 Blood Pressure 162/101 H Pulse Oximetry 100 99 Oxygen Delivery Method Room Air 07/30/23 12:00 07/30/23 12:15 07/30/23 12:30 Pulse Rate 60 Respiratory Rate 21 Blood Pressure 153/94 H 141/91 H Pulse Oximetry 99 Oxygen Delivery Method Room Air 07/30/23 12:30 07/30/23 12:53 07/30/23 13:00 Pulse Rate 60 60 Respiratory Rate 22 14 Blood Pressure 137/90 Pulse Oximetry 98 99 Oxygen Delivery Method 07/30/23 13:00 07/30/23 13:15 07/30/23 13:30 Pulse Rate 56 L 59 L Respiratory Rate 17 26 H Blood Pressure 141/83 H Pulse Oximetry 97 99 Oxygen Delivery Method Room Air 07/30/23 13:30 07/30/23 13:45 07/30/23 14:00 Pulse Rate 58 L 58 L Respiratory Rate 19 17 Blood Pressure 140/88 Pulse Oximetry 99 98 Oxygen Delivery Method 07/30/23 14:00 07/30/23 14:15 07/30/23 14:30 Pulse Rate 57 L 59 L 60 Respiratory Rate 19 27 H 18 Blood Pressure Pulse Oximetry 98 99 97 Oxygen Delivery Method 07/30/23 14:30 07/30/23 14:45 Pulse Rate 65 Respiratory Rate 25 H Blood Pressure 134/82 Pulse Oximetry 98 Oxygen Delivery Method MDM - Chest Pain Lab Data 07/30/23 11:06 07/30/23 11:06 Labs: Lab Results 07/30/23 07/30/23 Range/Units 11:06 13:06 WBC 6.1 (4.5-11.0) X10^3/uL RBC 4.86 (4.0-5.2) X10^6/uL Hgb 14.2 (12.0-16.0) g/dL Hct 41.6 (36-46) % MCV 85.6 (80-100) fL MCH 29.3 (26-34) PG MCHC 34.2 (30-36) % RDW 15.0 H (11.6-14.8) % Plt Count 210 (150-400) X10^3/uL Neut % (Auto) 65.2 (50-75) % Lymph % (Auto) 25.6 (25-40) % Wilkinson % (Auto) 7.6 (3-14) % Eos % (Auto) 1.5 L (2-4) % Baso % (Auto) 0.1 (0-2) % Neut # (Auto) 4000 (4933-2170) /uL Lymph # (Auto) 1600 (2657-1932) /uL Wilkinson # (Auto) 500 (0-900) /uL Eos # (Auto) 100 (0-450) /uL Baso # (Auto) 0 (0-100) /uL RBC Morphology See below Anisocytosis 1+ H Schistocytes 1+ H PT 11.3 (9.4-12.5) SECONDS INR 1.0 (0.9-1.3) APTT 31 (25.1-36.5) SECONDS Sodium 139 (137-145) mmol/L Potassium 3.7 (3.4-5.1) mmol/L Chloride 104 (98-107) mmol/L Carbon Dioxide 27 (22-32) mmol/L BUN 9 (7-17) mg/dL Creatinine 0.55 (0.52-1.04) mg/dL Estimated GFR > 60 (>60) mL/min BUN/Creatinine Ratio 16.4 (6-22) Glucose 85 (70-100) mg/dL Calcium 9.6 (8.4-10.2) mg/dL Magnesium 2.0 (1.6-2.3) mg/dL Total Bilirubin 0.7 (0.2-1.3) mg/dL AST 18 (14-36) IU/L ALT 15 (<35) IU/L Alkaline Phosphatase 45 (38-126) U/L Total Creatine Kinase 22 L < 20 L (30-135) U/L Troponin I < 0.012 < 0.012 (0.01-0.034) ng/mL Total Protein 7.3 (6.3-8.2) g/dL Albumin 4.3 (3.5-5.0) g/dL Globulin 3.0 (1.7-4.1) g/dL Albumin/Globulin Ratio 1.4 (1.0-2.8) Lipase 62 (23-300) U/L Imaging Data Chest x-ray: Radiologist's Impression: PROCEDURE: XR CHEST 1V INDICATIONS: chest pain TECHNIQUE: One view of the chest was acquired. COMPARISON: [facility], , XR CHEST 1V, 11/04/2019, 21:51. FINDINGS: Surgical changes and devices: None. Lungs and pleura: Lungs are clear. No pleural effusions or pneumothorax. Mediastinum: Mediastinal contours appear normal. Heart size is normal. Bones and chest wall: No suspicious bony lesions. Overlying soft tissues appear unremarkable. IMPRESSION: No acute cardiopulmonary abnormality is seen. ECG Data Attestation: I personally reviewed and interpreted this ECG as follows: Interpretation: Sinus rhythm Ventricular rate is 60 Normal axis Normal QRS Normal QTC No ST T wave changes MDM Narrative Medical decision making narrative: Low risk heart score. EKG is unremarkable. Chest x-ray is unremarkable. Troponins are negative x2. No signs of pneumonia. No indication for antibiotics. Recommended that the patient contact her primary doctor to discuss further evaluation to include stress testing. She was given return precautions. She expressed understanding and agreement. Discharge Plan Departure Patient Disposition: Home Clinical Impression: Atypical chest pain Instructions: DI for Atypical Chest Pain Activity Restrictions/Additional Instructions: Recommend that you contact your primary doctor tomorrow for follow-up to discuss the indications for a Holter monitor. Continue all of your other medications as directed. Return to the emergency department for new or worsening symptoms. Prescriptions: No Action levothyroxine 125 mcg tablet 125 mcg PO DAILY cholecalciferol (vitamin D3) [Vitamin D3] 25 mcg (1,000 unit) Capsule 25 mcg PO DAILY Probiotic 10 billion cell Capsule 10,000 mmu cells PO DAILY Zyrtec 10 mg Capsule 10 mg PO DAILY nebivolol 5 mg tablet 5 mg PO QPM Referrals: Honey Allen MD [Primary Care Provider] - Stand Alone Forms: Patient Portal/API
[2023-07-30] MEDS: ACETAMINOPHEN 325 MG TABLET 650 MG PO (11:54)
[2023-07-30 12:04] LABS: Anisocytosis 1+; Schistocytes 1+
[2023-07-30 12:11] LABS: Alanine Aminotransferase 15 IU/L (<35); Albumin 4.3 g/dL (3.5-5.0); Albumin Globulin Ratio 1.4 (1.0-2.8); Alkaline Phosphatase 45 U/L (38-126); Aspartate Aminotransferase 18 IU/L (14-36); BUN Creatinine Ratio 16.4 (6-22); Bilirubin Total 0.7 mg/dL (0.2-1.3); Blood Urea Nitrogen 9 mg/dL (7-17); Calcium 9.6 mg/dL (8.4-10.2); Carbon Dioxide 27 mmol/L (22-32); Chloride 104 mmol/L (98-107); Creatine Kinase 22 U/L (30-135); Estimated Glomerular Filt Rate > 60 mL/min (>60); Glucose 85 mg/dL (70-100); HEMOLYSIS < 15 (0-50); Lipase 62 U/L (23-300); Potassium 3.7 mmol/L (3.4-5.1); Sodium 139 mmol/L (137-145); Total Protein 7.3 g/dL (6.3-8.2)
[2023-07-30 12:22] LABS: Troponin I < 0.012 ng/mL (0.01-0.034)
[2023-07-30 13:28] LABS: Creatine Kinase < 20 U/L (30-135)
[2023-07-30 13:41] LABS: Troponin I < 0.012 ng/mL (0.01-0.034)
== END 2023-07-30 14:56 | disposition home or self-care (01) ==
PROVIDERS: Emergency Provider Emergency Medicine; Family Provider Family Medicine; PCP Family Medicine
DX: R07.89 Other chest pain (principal)
CPT/HCPCS: 36415; 71045; 80053; 82550; 83690; 83735; 84484; 85025; 85610; 85730; 93005; 99284

== ENCOUNTER → 2024-04-08 16:45 | Outpatient (CLI) | payer BC, SELFPAY ==
[2023-05-02 11:00] VITALS: BMI 24.3
--- NOTE | 2024-04-08 16:45 | DI.MG.S_ITS ---
BILATERAL DIGITAL SCREENING MAMMOGRAM 3D/2D WITH CAD: 04/08/2024 CLINICAL: Routine screening. Family history of breast cancer. Comparison is made to exams dated: 04/07/2023 mammogram, 07/06/2022 breast MRI, 04/04/2022 mammogram, and 04/01/2021 mammogram - [facility]. The breasts are heterogeneously dense, which may obscure small masses (category c / 51-75% glandular tissue). Current study was also evaluated with a Computer Aided Detection (CAD) system. No significant masses, calcifications, or other findings are seen in either breast. There has been no significant interval change. IMPRESSION: NEGATIVE There is no mammographic evidence of malignancy. A 1 year screening mammogram is recommended. Based on the Tyrer Cuzick model (a risk assessment model) the patient's lifetime risk is 15.8% and her 10 year risk is 3.2%. According to the ACR, ACS, and NCCN guidelines, an annual breast MRI exam along with mammogram is recommended if the patient's lifetime risk is 20% or greater. This exam was interpreted at Station ID: [id number]. NOTE: For mammograms, a report in lay terms will be sent to the patient. Approximately 15% of breast malignancies will not be visualized mammographically. In the management of a palpable breast mass, a negative mammogram must not discourage biopsy of a clinically suspicious lesion. Electronically Signed By: Jazmyn christensen/sudha:04/09/2024 18:00:07 letter sent: Normal Exam ACR BI-RADS Category 1: Negative
== END ==
PROVIDERS: Family Provider Family Medicine; PCP Family Medicine; Referring Provider Family Medicine; Visit Provider Family Medicine
DX: Z12.31 Encounter for screening mammogram for malignant neoplasm of breast (principal); Z80.3 Family history of malignant neoplasm of breast; R92.333 Mammographic heterogeneous density, bilateral breasts
CPT/HCPCS: 77063; 77067

== ENCOUNTER → 2024-04-25 08:15 | Outpatient (CLI) | payer BC, SELFPAY ==
[2023-05-02 11:00] VITALS: BMI 24.3
[2024-04-25 10:28] LABS: Alanine Aminotransferase 12 IU/L (<35); Albumin Globulin Ratio 1.5 (1.0-2.8); Alkaline Phosphatase 46 U/L (38-126); Aspartate Aminotransferase 18 IU/L (14-36); Bilirubin Total 0.8 mg/dL (0.2-1.3); Bilirubin Unconjugated 0.7 mg/dL (0.0-1.1); Globulin 2.7 g/dL (1.7-4.1); HEMOLYSIS < 15 (0-50); Total Protein 6.7 g/dL (6.3-8.2)
== END ==
PROVIDERS: Family Provider Family Medicine; PCP Family Medicine; Referring Provider Family Medicine; Visit Provider Family Medicine
DX: R17 Unspecified jaundice (principal)
CPT/HCPCS: 36415; 80076

== ENCOUNTER → 2025-03-15 08:10 | Outpatient (CLI) | payer OTHER, SELFPAY ==
[2023-05-02 11:00] VITALS: BMI 24.3
[2025-03-15 09:20] LABS: Blood Urea Nitrogen 16 mg/dL (7-17); Calcium 9.0 mg/dL (8.4-10.2); Carbon Dioxide 24 mmol/L (22-32); Chloride 106 mmol/L (98-107); Estimated Glomerular Filt Rate > 60 mL/min (>60); Glucose 95 mg/dL (70-99); HEMOLYSIS < 15 (0-50); Potassium 4.2 mmol/L (3.4-5.1); Sodium 139 mmol/L (137-145)
[2025-03-15 09:43] LABS: Free T4, Direct Thyroxine 1.32 ng/dL (0.78-2.19)
[2025-03-15 09:57] LABS: Thyroid Stimulating Hormone 0.561 uIU/mL (0.47-4.68)
[2025-03-17 13:10] LABS: Anti Thyroglobulin Antibody <1.0 IU/mL (0.0-0.9)
== END ==
PROVIDERS: Family Provider Family Medicine; PCP Family Medicine; Referring Provider Internal Medicine; Visit Provider Internal Medicine
DX: C73 Malignant neoplasm of thyroid gland (principal)
CPT/HCPCS: 36415; 80048; 84439; 84443; 86800

== ENCOUNTER → 2025-04-04 07:47 | Outpatient (CLI) | payer OTHER, SELFPAY ==
[2023-05-02 11:00] VITALS: BMI 24.3
--- NOTE | 2025-04-04 07:48 | DI.MG.S_ITS ---
MM screening mammo BI: 04/04/2025. BI-RADS: 0 CLINICAL: 45-year old female for bilateral screening mammogram. Tyrer-Cuzick lifetime risk of 14.7%. No personal or first-degree family history of breast cancer. Current reported family history of breast cancer: paternal grandmother and paternal aunt. PRIOR EXAMS 04/08/2024, 04/07/2023, 07/06/2022, 04/04/2022, 04/01/2021. MAMMOGRAPHY TECHNIQUE: 2D and 3D (tomosynthesis) digital mammographic views obtained, with additional images as needed for full coverage. Current study was also evaluated with a Computer Aided Detection (CAD) system. DENSITY C. The breasts are heterogeneously dense, which may obscure small masses. MAMMOGRAPHY FINDINGS Right: No suspicious mass, asymmetry, microcalcification, or other abnormality seen. Left: Lower Inner Quadrant, Middle depth: Focal asymmetry needing additional imaging evaluation. IMPRESSION: Right * No evidence of malignancy. Left (Asymmetry): Lower Inner Quadrant, Middle depth * Incomplete - focal asymmetry needing additional imaging evaluation. RECOMMENDATIONS Left: Lower Inner Quadrant, Middle depth * Further evaluation with diagnostic mammography and diagnostic ultrasound. Ultrasound to be performed only if needed. OVERALL ASSESSMENT CATEGORY BI-RADS-0: Incomplete - Need Additional Imaging Evaluation. ELECTRONICALLY SIGNED: Ethel Zaragoza M.D. on 04/04/2025 at 09:36:43 AM PT Interpreting Station ID: [id number]
== END ==
LOC: MAMMO 07:47
PROVIDERS: Family Provider Family Medicine; PCP Family Medicine; Referring Provider Family Medicine; Visit Provider Family Medicine
DX: Z12.31 Encounter for screening mammogram for malignant neoplasm of breast (principal); R92.333 Mammographic heterogeneous density, bilateral breasts
CPT/HCPCS: 77063; 77067

== ENCOUNTER → 2025-04-05 08:42 | Outpatient (CLI) | payer OTHER, SELFPAY ==
[2023-05-02 11:00] VITALS: BMI 24.3
== END ==
PROVIDERS: Family Provider Family Medicine; PCP Family Medicine; Referring Provider Internal Medicine; Visit Provider Internal Medicine
DX: C73 Malignant neoplasm of thyroid gland (principal)
CPT/HCPCS: 36415; 84432; 86800

== ENCOUNTER → 2025-04-11 09:19 | Outpatient (CLI) | payer OTHER, SELFPAY ==
[2023-05-02 11:00] VITALS: BMI 24.3
--- NOTE | 2025-04-11 09:20 | DI.MG.S_ITS ---
US breast LT limited, MM diagnostic mammo unilat LT: 04/11/2025 BI-RADS: 2 CLINICAL: 45-year old female for left diagnostic mammogram and left diagnostic breast ultrasound that is a recall from screening on 04/04/2025. Tyrer-Cuzick lifetime risk of 14.7%. No personal or first-degree family history of breast cancer. Current reported family history of breast cancer: paternal grandmother and paternal aunt. PRIOR EXAMS Mammogram(s): 04/04/2025. 04/08/2024, 04/07/2023, 07/06/2022. MAMMOGRAPHY TECHNIQUE: 2D and 3D (tomosynthesis) digital mammographic views obtained, with additional images as needed for full coverage. Current study was also evaluated with a Computer Aided Detection (CAD) system. ULTRASOUND TECHNIQUE: Real-time ramirez scale and color doppler imaging of the area of clinical interest was performed with image documentation. DENSITY Left: C. The breast is heterogeneously dense, which may obscure small masses. MAMMOGRAPHY FINDINGS Left: Lower at 6:00, Middle depth, measuring 1.5cm. Previous report: Lower Inner Quadrant: There is a circumscribed, oval mass present. ULTRASOUND FINDINGS Left: Lower at 6:00, Retroareolar, measuring 1.5 x 0.5 x 1.1 cm. Previous report: Lower Inner Quadrant: Correlating with findings on mammogram, there is a simple anechoic cyst showing posterior acoustic enhancement. Doppler shows no vascularity. IMPRESSION: Left * No evidence of malignancy with benign findings. RECOMMENDATIONS Bilateral * Annual screening mammography. COMMENTS: Findings and recommendations were conveyed to the patient during today's evaluation. OVERALL ASSESSMENT CATEGORY BI-RADS-2: Benign. [employer] recommends annual screening mammography beginning at age 40 for women with average risk of breast cancer. ELECTRONICALLY SIGNED: Irene Pichardo M.D. on 04/11/2025 at 04:35:55 PM PT Interpreting Station ID: [id number]
== END ==
LOC: MAMMO 09:19
PROVIDERS: Family Provider Family Medicine; PCP Family Medicine; Referring Provider Family Medicine; Visit Provider Family Medicine
DX: R92.8 Other abnormal and inconclusive findings on diagnostic imaging of breast (principal); N60.02 Solitary cyst of left breast; R92.333 Mammographic heterogeneous density, bilateral breasts; Z80.3 Family history of malignant neoplasm of breast
CPT/HCPCS: 76642; 77065; G0279

== ENCOUNTER → 2025-06-06 07:11 | Outpatient (CLI) | payer OTHER, SELFPAY ==
[2023-05-02 11:00] VITALS: BMI 24.3
[2025-06-06 08:08] LABS: Hemoglobin A1C% w Est Avg Glu 5.2 % (4.0-6.0)
[2025-06-06 08:32] LABS: Alanine Aminotransferase 13 IU/L (<35); Albumin 4.1 g/dL (3.5-5.0); Albumin Globulin Ratio 1.6 (1.0-2.8); Alkaline Phosphatase 41 U/L (38-126); Blood Urea Nitrogen 10 mg/dL (7-17); Calcium 8.7 mg/dL (8.4-10.2); Carbon Dioxide 24 mmol/L (22-32); Chloride 106 mmol/L (98-107); Cholesterol 167 mg/dL (140-199); Estimated Glomerular Filt Rate > 60 mL/min (>60); Globulin 2.5 g/dL (1.7-4.1); Glucose 101 mg/dL (70-99); HDL Cholesterol 50 mg/dL (40-60); HEMOLYSIS < 15 (0-50); Potassium 4.2 mmol/L (3.4-5.1); Sodium 137 mmol/L (137-145); Total Protein 6.6 g/dL (6.3-8.2); Triglycerides 54 mg/dL (35-150)
[2025-06-06 09:16] LABS: Microalbumi Creatinin Ratio Ur 5.0 ug/mg CR (<30)
== END ==
PROVIDERS: Family Provider Family Medicine; PCP Family Medicine; Referring Provider Family Medicine; Visit Provider Family Medicine
DX: Z13.1 Encounter for screening for diabetes mellitus (principal); I10 Essential (primary) hypertension; E03.9 Hypothyroidism, unspecified; F41.9 Anxiety disorder, unspecified
CPT/HCPCS: 36415; 80053; 80061; 82043; 82570; 83036